=== PATIENT | male | born 1950 | race Caucasian/White ===

== ENCOUNTER 2019-10-21 01:21 | Emergency (ER) | payer MEDICARE, SELFPAY ==
--- NOTE | ~2019-10-21 | XR_ITS ---
EXAMINATION: XR chest 2V DATE: 10/21/2019 01:50 INDICATION: Heart palpitations. TECHNIQUE: Frontal and lateral views of the chest were obtained. COMPARISON: Chest 2 views 04/09/2015, CT abdomen 12/03/2018 FINDINGS: There is mild atelectasis in the lower lung zones. There are peripheral airspace opacities in left mid and lower lung zones. Calcified left lung nodules and calcified left hilar lymph nodes ar e consistent with old granulomatous disease. No pleural effusion or pneumothorax. The heart size is n ormal. There are 2 chronic compression fractures in thoracic spine. IMPRESSION: 1. Peripheral airspace opacities in left mid and lower lung zones, which may be pneumonia, atelectasi s, or prominent extrapleural fat. 2. Mild atelectasis in the lower lung zones. Reviewed, dictated and finalized at location A. IMPRESSION: 1. Peripheral airspace opacities in left mid and lower lung zones, which may be pneumonia, atelectasis, or prominent extrapleural fat. 2. Mild atelectasis in the lower lung zones.
[2019-10-21 01:25] VITALS: BP 154/100; PULSE 98; RESP 18; TEMP 36.2; O2SAT 97
--- NOTE | 2019-10-21 01:29 | ECG_ITS ---
Measurements Intervals [place] Rate: 96 P: 47 MD: 233 QRS: -23 QRSD: 98 T: 67 QT: 345 QTc: 437 Interpretive Statements SINUS RHYTHM WITH FIRST DEGREE AV BLOCK INCOMPLETE RIGHT BUNDLE BRANCH BLOCK LEFT VENTRICULAR HYPERTROPHY AND ST-T CHANGE BASELINE ARTIFACT- II, III, AVF ABNORMAL ECG Electronically Signed On 10-21-2019 7:04:04 CDT by Ishmael Weeks D.O.
--- NOTE | 2019-10-21 01:30 | PC.NURSE ---
Patient reports taking two 324 ASA at 1999.
--- NOTE | 2019-10-21 01:38 | ED.ARRPALP ---
HPI - Arrhythmia/Palpitations General Chief Complaint: Arrhythmia/Palpitations Stated Complaint: HEART RACING Time Seen by Provider: 10/21/19 01:37 Source: patient Mode of arrival: ambulatory Limitations: no limitations History of Present Illness HPI narrative: Patient is a 69-year-old male who presents to the emergency department with complaint of heart racing. Patient states he was laying in bed trying to go to sleep when he noticed his heart beating very fast. Patient states it was beating approximately 140 beats a minute. Patient sat up and drank a glass of water, but did not have any improvement in symptoms. Patient states he feels better at this time. He denies any history of cardiac problems or heart arrhythmias. Patient denies having had any chest pain or shortness of breath. He denies any recent illness symptoms and states he is otherwise been doing well. MD complaint: heart racing Duration: now resolved Context: occurred during rest Associated symptoms: denies other symptoms Treatments prior to arrival: other (Took 2 full-strength aspirin prior to arrival) Related Data Home Medications Medication Instructions Recorded Confirmed aspirin 81 mg tablet,delayed 81 mg PO DAILY 05/13/19 release calcium carbonate-vitamin D3 600 tablet PO 05/13/19 mg(1,500 mg)-400 unit chewable tablet simvastatin 20 mg tablet 20 mg PO DAILY 05/13/19 Allergies Allergy/AdvReac Type Severity Reaction Status Date / Time No Known Allergies Allergy Unknown Verified 06/23/19 13:53 Review of Systems Review of Systems: All systems reviewed & are unremarkable except as noted in HPI and below Cardiovascular: Cardiovascular: Denies chest pain and Reports rapid heart rate Respiratory: Respiratory: Denies cough and Denies dyspnea PMFSH Past Medical History Medical History (Updated 10/21/19 @ 03:23 by Moriah Mccormack MD) Abdominal aortic aneurysm (AAA) without rupture Chronic midline low back pain with bilateral sciatica Hx of colonic polyps Mixed hyperlipidemia Vitamin D deficiency Surgical History Surgical History (Updated 10/21/19 @ 01:53 by Moriah Mccormack MD) History of colonoscopy With polypectomy Family History Family History (Updated 11/07/18 @ 16:00 by DOCTOR UNKNOWN) Mother Carcinoma of colon Family history of malignant neoplasm of ovary Father Family history of Alzheimer's disease Family history of congestive heart failure Cerebrovascular accident Other Family history of malignant neoplasm Hypertension Social History Social History Smoking packs per day: 2 Smoking cigarettes per day: 40.0 Years smoked: 32 Smoking pack-years: 64.00 Smoking status: Former smoker Tobacco type: cigarettes Second hand tobacco smoke exposure: No Smoking end date: 06/26/98 Alcohol intake: current Drinks per week: 3 Substance use: never Substance use type: does not use Gender identity (if verbalized by the patient): Male Exam Const: General: cooperative, no acute distress and alert Nutritional Appearance: obese Orientation/consciousness: patient oriented x3 Limitations: no limitations Resp: Effort & Inspection: normal respiratory effort Auscultation: clear to auscultation bilaterally Cardio: Rate: regular rate Rhythm: regular rhythm GI: GI Palp: Yes Soft to palpation and No Tenderness to palpation present (GI) Auscultation: normal bowel sounds Skin: General skin exam: normal color Neuro: General: patient oriented x3 Cognition (Neuro): normal cognition Speech: normal speech Extrem: General: normal to inspection, full ROM and no clubbing, cyanosis or edema Psych: Mental Status: mental status grossly normal Affect: normal affect Attitude: cooperative Course Course Emergency Course: Patient in normal sinus rhythm on classroom monitor throughout his ED visit. No evidence of arrhythmi
[2019-10-21 01:39] LABS: Basophils Absolute Auto 0.1 K/mm3 (0.0-0.1); Basophils Percent Auto 0.7 % (0.2-1.2); Eosinophils Absolute Auto 0.2 K/mm3 (0-0.3); Hematocrit 42.9 % (42.0-52.0); Hemoglobin 14.8 g/dL (14.0-18.0); Immature Granulocyte Absolute 0.03 K/mm3 (0.00-0.031); Immature Granulocyte Percent A 0.4 % (0-0.5); Lymphocytes Absolute Auto 3.31 K/mm3 (0.9-3.2); Lymphocytes Percent Auto 47.1 % (18.3-44.2); Mean Corpuscular HGB Conc 34.5 g/dl (32-36); Mean Corpuscular Hemoglobin 32.2 pg (26-34); Mean Corpuscular Volume 93.5 fl (80-100); Mean Platelet Volume 8.9 fl (7.4-10.4); Monocytes Percent Auto 14.1 % (2.6-8.5); Neutrophils Absolute Auto 2.4 K/mm3 (1.3-6.7); Neutrophils Percent Auto 34.7 % (45.5-73.1); Platelet Count Result 191 k/mm3 (150-375); Red Blood Count 4.59 M/mm3 (4.6-6.20); Red Cell Distribution Width 12.6 % (11.5-14.5)
[2019-10-21 01:47] LABS: INR 0.9; Prothrombin Time 12.3 Seconds (11.1-14.7)
[2019-10-21 01:48] LABS: Blood Urea Nitrogen 21 mg/dL (9-20); Calcium 9.4 mg/dL (8.4-10.2); Carbon Dioxide 27 mmol/L (22-30); Chloride 106 mmol/L (98-107); Estimated CRCL calculation 57 ml/min; Estimated Glomerular Filt Rate 50; Glucose 130 mg/dL (75-110); Partial Thromboplastin Time 25.6 SECONDS (22.3-36.8); Potassium 4.3 mmol/L (3.4-5.0); Sodium 139 mmol/L (137-145)
[2019-10-21 02:00] LABS: Troponin I < 0.012 ng/mL (0.000-0.034)
[2019-10-21 02:20] LABS: Magnesium 2.1 mg/dL (1.6-2.3)
[2019-10-21 03:33] VITALS: BP 127/76; PULSE 77; RESP 15; O2SAT 98
== END 2019-10-21 03:33 | disposition home or self-care (01) ==
PROVIDERS: Emergency Provider Emergency Medicine; PCP Family Medicine
DX: R00.2 Palpitations (principal); Z86.010 Personal history of colon polyps; E78.2 Mixed hyperlipidemia; E55.9 Vitamin D deficiency, unspecified; Z87.891 Personal history of nicotine dependence; I45.10 Unspecified right bundle-branch block; I44.0 Atrioventricular block, first degree; R94.31 Abnormal electrocardiogram [ECG] [EKG]
CPT/HCPCS: 36415; 71046; 80048; 83735; 84443; 84484; 85025; 85610; 85730; 93005; 99284

== ENCOUNTER 2019-10-24 05:50 | Observation (INO) | payer MEDICARE, SELFPAY ==
[2019-10-24] VITALS (8 sets, daily range): BP systolic 127–190; BP diastolic 71–100; PULSE 57–143; RESP 14–28; TEMP 36.6–36.7; O2SAT 97–100; BMI 37.0
--- NOTE | 2019-10-24 | ECHO_ITS ---
Patient Info Name: Brendan Allred Age: 69 years : 1950 Gender: Male Ht: 69 in Wt: 251 lbs BSA: 2.40 m2 HR: 60 bpm BP: 142 / 85 mmHg Heart Rhythm: Sinus Rhythm Technical Quality: Good Exam Date: 10/24/2019 11:30 AM [facility]am [facility] Pul[facility] Exam Room: [place] [address] Patient Status: Outpatient Admit Date: 10/24/2019 Staff Ordering Physician: Kenny Henson DO Electrical Machinist: Josi Long RDCS Attending Provider: Shantell Rogel MD Referring Physician: Natividad FORREST; Exam Type: CA echo doppler color flow Study Info Indications - hx/o AAA NEW ONSET AFLUTTER EVAL LV FXN Complete two-dimensional, color flow and Doppler transthoracic echocardiogram is performed. Summary 1. Left ventricular chamber dimension is normal. 2. Left ventricular systolic function is normal, estimated at 55-60%. 3. There is mildly increased left ventricular wall thickness. 4. Left ventricular septal wall motion is normal. 5. The left ventricular diastolic function is grade I diastolic dysfunction. 6. Right ventricular chamber dimension is mildly enlarged. 7. There is mild aortic valve sclerosis. 8. There is mild to moderate aortic valve regurgitation. 9. There is mild mitral valve regurgitation. 10. The mitral valve has thickened leaflets. 11. There is mild tricuspid valve regurgitation. 12. There is mild pulmonic regurgitation. 13. The abdominal aorta size is dilated. Left Ventricle Left ventricular chamber dimension is normal. Left ventricular systolic function is normal, estimated at 55-60%. There is mildly increased left ventricular wall thickness. Left ventricular septal wall motion is normal. The left ventricular diastolic function is grade I diastolic dysfunction. Right Ventricle Right ventricular chamber dimension is mildly enlarged. Right ventricular systolic function is normal. Left Atria Left atrial chamber dimension is mildly enlarged. Right Atria Right atrial chamber dimension is mildly enlarged. Atrial Septum Intact interatrial septum visualized by color flow imaging. Aortic Valve The aortic valve is trileaflet. There is mild aortic valve sclerosis. There is no aortic valve stenosis. There is mild to moderate aortic valve regurgitation. Pulmonic Valve The pulmonic valve is normal. There is no pulmonic valve stenosis. There is mild pulmonic regurgitation. Mitral Valve The mitral valve has thickened leaflets. There is no mitral valve stenosis. There is mild mitral valve regurgitation. Tricuspid Valve The tricuspid valve leaflets are normal. There is no significant tricuspid valve stenosis. There is mild tricuspid valve regurgitation. No pulmonary hypertension, estimated pulmonary arterial systolic pressure is 25 mmHg. Pericardium/Pleural The pericardium appears normal. There is no pericardial effusion. Inferior Vena Cava Normal inferior vena cava with >50% collapse upon inspiration consistent with normal right atrial pressure, 10 mmHg. Aorta The aortic root size at the sinus of Valsalva is mildly dilated. The abdominal aorta size is dilated. Left Ventricular Outflow Tract Name Value Normal LVOT 2D LVOT Diameter 2.3 cm
--- NOTE | ~2019-10-24 | XR_ITS ---
EXAMINATION: XR chest 1V portable DATE: 10/24/2019 06:10 INDICATION: Chest pain. TECHNIQUE: A single frontal view of the chest was obtained. COMPARISON: Chest 2 views 10/21/2019, CT abdomen 12/03/2018 FINDINGS: The chest demonstrates clear lungs without pneumonia, pleural effusion, or pneumothorax. Th e heart size is normal. IMPRESSION: 1. No acute cardiopulmonary disease. Reviewed, dictated and finalized at location A.
--- NOTE | ~2019-10-24 | CT_ITS ---
EXAMINATION: CTA chest PE protocol DATE: 10/24/2019 07:00 INDICATION: Chest pain. TECHNIQUE: Computed tomography angiography (CTA) of the chest was performed with 100 mL Omnipaque-350 intravenous contrast timed to evaluate the pulmonary arteries. Coronal maximum intensity projection 3D-reconstructions were created by the technologist. Automated exposure control and iterative reconst ruction technique were employed. The dose-length product was 956.48 mGy-cm. COMPARISON: CT abdomen 12/03/2018 FINDINGS: There are peripheral reticular opacities and mild peripheral groundglass opacities in the u pper lobes and lower lobes. Calcified bilateral lung nodules and calcified left hilar lymph nodes are consistent with old granulomatous disease. No pleural effusion. The heart size is normal. There are coronary artery calcifications. No pericardial effusion. There is no pulmonary embolus. There are cys ts in the liver measuring up to 4.0 cm. There is chronic height loss of multiple thoracic vertebral b odies. IMPRESSION: 1. No pulmonary embolus. 2. Peripheral reticular and mild groundglass opacities in the upper lobes and lower lobes, consistent with mild atelectasis and/or mild chronic interstitial lung disease. Reviewed, dictated and finalized at location A. IMPRESSION: 1. No pulmonary embolus. 2. Peripheral reticular and mild groundglass opacities in the upper lobes and l ower lobes, consistent with mild atelectasis and/or mild chronic interstitial l jonathon disease.
--- NOTE | 2019-10-24 05:59 | ECG_ITS ---
Measurements Intervals [place] Rate: 143 P: FL: 0 QRS: -27 QRSD: 110 T: 75 QT: 243 QTc: 375 Interpretive Statements ATRIAL FLUTTER/TACHYCARDIA WITH RAPID VENTRICULAR RESPONSE INCOMPLETE RIGHT BUNDLE BRANCH BLOCK NONSPECIFIC ST & T-WAVE ABNORMALITY- LATERAL LEADS ABNORMAL ECG Electronically Signed On 10-24-2019 7:30:30 CDT by Ishmael Weeks D.O.
[2019-10-24] MEDS: ASPIRIN 81 MG CHEWABLE TABLET 324 MG PO (06:03)
--- NOTE | 2019-10-24 06:14 | ED.ARRPALP ---
HPI - Arrhythmia/Palpitations General Chief Complaint: Arrhythmia/Palpitations Stated Complaint: Heart racing Time Seen by Provider: 10/24/19 06:07 Source: RN notes reviewed History of Present Illness HPI narrative: Patient presents to emergency department from home for palpitations. Patient states 30 minutes prior to arrival he started feeling like his heart was racing. Patient states he has no associated symptoms denies any fevers or chills chest pain shortness of breath abdominal pain. He states that he had similar symptoms on Monday and came to the emergency department but symptoms had resolved by the time he had arrived and had normal work-up at that time. He denies any previous history of cardiac arrhythmia denies any previous cardiac history Related Data Home Medications Medication Instructions Recorded Confirmed aspirin 81 mg tablet,delayed 81 mg PO DAILY 05/13/19 release calcium carbonate-vitamin D3 600 tablet PO 05/13/19 mg(1,500 mg)-400 unit chewable tablet simvastatin 20 mg tablet 20 mg PO DAILY 05/13/19 Allergies Allergy/AdvReac Type Severity Reaction Status Date / Time No Known Allergies Allergy Unknown Verified 10/22/19 13:02 Review of Systems Review of Systems: Narrative: Gen.: Denies fevers or chills Eyes: Denies eye pain or visual change ENT: Denies congestion Respiratory: Denies shortness of breath or cough CV: See HPI GI: Denies abdominal pain nausea, emesis or diarrhea Musculoskeletal: Denies back pain or muscle pain Neuro: Denies numbness, tingling, weakness or focal weakness Skin: Denies rash Except as documented, all other systems reviewed and negative [facility] Past Medical History Medical History Abdominal aortic aneurysm (AAA) without rupture Chronic midline low back pain with bilateral sciatica Hx of colonic polyps Mixed hyperlipidemia Vitamin D deficiency Social History Social History Smoking packs per day: 2 Smoking cigarettes per day: 40.0 Years smoked: 32 Smoking pack-years: 64.00 Smoking status: Former smoker Tobacco type: cigarettes Second hand tobacco smoke exposure: No Smoking end date: 06/26/98 Alcohol intake: current Drinks per week: 3 Substance use: never Substance use type: does not use Gender identity (if verbalized by the patient): Male Exam Narrative: Exam Narrative: APPEARANCE: No acute distress, nontoxic, resting in bed EYES: EOMI HEENT: Normocephalic, atraumatic, OMM RESPIRATORY: No respiratory distress Clear to auscultation bilaterally with no rhonchi wheezing or rales. CARDIOVASCULAR: Tachycardic and regular without murmurs rubs or gallops. ABDOMINAL: Soft, nontender, nondistended, no rebound or guarding MUSCULOSKELETAl: Moves all extremities. No clubbing, cyanosis or edema. NEURO: Awake and alert. Following commands, speech normal, no focal deficits SKIN:: Warm, dry. No rashes lesions or abrasions PSYCHIATRIC: Normal affect/mood, Course Course Emergency Course: Patient given Cardizem in the ED with conversion to sinus rhythm Called discussed Dr. Rogel presentation work-up. This time she recommends admission of the chest pain center. Recommends cardiac echo be obtained. Request patient be started on Cardizem CD 180 mg at this time Discussed with patient and family results of workup and diagnosis. Discussed need for admission. Patient and family understand and agree to current treatment plan Vital Signs Vital signs: Vital Signs Temperature 97.9 F 10/24/19 05:55 Pulse Rate 143 H 10/24/19 05:55 Respiratory Rate 28 H 10/24/19 05:55 Blood Pressure 190/100 H 10/24/19 05:55 Pulse Oximetry 98 10/24/19 05:55 Temperature 97.9 F 10/24/19 05:55 Pulse Rate 72 10/24/19 06:56 Respiratory Rate 22 H 10/24/19 06:56 Blood Pressure 127/78 10/24/19 06:56 Pulse Oximetry 97 10/24/19 06:56
[2019-10-24 06:19] LABS: Basophils Percent Auto 0.5 % (0.2-1.2); Eosinophils Absolute Auto 0.2 K/mm3 (0-0.3); Eosinophils Percent Auto 2.8 % (0-4.4); Hematocrit 46.2 % (42.0-52.0); Hemoglobin 15.5 g/dL (14.0-18.0); Immature Granulocyte Absolute 0.03 K/mm3 (0.00-0.031); Immature Granulocyte Percent A 0.4 % (0-0.5); Lymphocytes Absolute Auto 3.69 K/mm3 (0.9-3.2); Lymphocytes Percent Auto 46.6 % (18.3-44.2); Mean Corpuscular HGB Conc 33.5 g/dl (32-36); Mean Corpuscular Hemoglobin 31.4 pg (26-34); Mean Corpuscular Volume 93.7 fl (80-100); Mean Platelet Volume 9.1 fl (7.4-10.4); Monocytes Absolute Auto 0.9 K/mm3 (0.1-0.6); Monocytes Percent Auto 11.9 % (2.6-8.5); Neutrophils Percent Auto 37.8 % (45.5-73.1); Platelet Count Result 209 k/mm3 (150-375); Red Blood Count 4.93 M/mm3 (4.6-6.20); Red Cell Distribution Width 12.5 % (11.5-14.5); White Blood Count 7.9 K/mm3 (4.5-10.0)
--- NOTE | 2019-10-24 06:27 | ECG_ITS ---
Measurements Intervals [facility] Rate: 68 P: 51 WV: 235 QRS: -19 QRSD: 102 T: 63 QT: 371 QTc: 395 Interpretive Statements SINUS RHYTHM WITH SINUS ARRHYTHMIA WITH FIRST DEGREE AV BLOCK INCOMPLETE RIGHT BUNDLE BRANCH BLOCK VOLTAGE CRITERIA FOR LVH BASELINE ARTIFACT- I, II, III, AVL, AVF ABNORMAL ECG Electronically Signed On 10-24-2019 7:31:07 CDT by Ishmael Weeks D.O.
[2019-10-24 06:30] LABS: Alanine Aminotransferase 22 U/L (4-50); Albumin Level 4.7 g/dL (3.5-5.1); Alkaline Phosphatase 54 U/L (38-126); Aspartate Amino Transferase 27 U/L (17-59); Bilirubin,Total 0.3 mg/dL (0.2-1.3); Blood Urea Nitrogen 20 mg/dL (9-20); Calcium 9.5 mg/dL (8.4-10.2); Carbon Dioxide 24 mmol/L (22-30); Chloride 106 mmol/L (98-107); Estimated CRCL calculation 60 ml/min; Estimated Glomerular Filt Rate 55; Glucose 125 mg/dL (75-110); Potassium 4.4 mmol/L (3.4-5.0); Sodium 140 mmol/L (137-145)
[2019-10-24] MEDS: SODIUM CHLORIDE 0.9% IV 1,000 ML 999 ML IV CONT (06:36)
[2019-10-24 06:38] LABS: D Dimer 0.56 ug/mL (<0.48)
[2019-10-24 06:42] LABS: NT Pro B Type Natriuretic Pept 87 PG/ML (5-100); Troponin I < 0.012 ng/mL (0.000-0.034)
[2019-10-24 07:04] LABS: Thyroid Stimulating Hormone 0.948 uIU/mL (0.465-4.680)
--- NOTE | 2019-10-24 07:47 | PC.NURSE ---
CALLED LAB AND ADDED ON LIPID PANEL ORDER
[2019-10-24 08:03] LABS: Cholesterol 210 mg/dL (0-200); HDL Direct 40 mg/dL; Triglycerides 178 mg/dL (<150)
[2019-10-24 08:14] LABS: LDL Cholesterol Direct 137 mg/dL
[2019-10-24 09:49] LABS: Troponin I < 0.012 ng/mL (0.000-0.034)
--- NOTE | 2019-10-24 10:41 | ECG_ITS ---
Measurements Intervals [place] Rate: 54 P: 25 MN: 213 QRS: -16 QRSD: 106 T: 33 QT: 414 QTc: 394 Interpretive Statements SINUS BRADYCARDIA WITH FIRST DEGREE AV BLOCK INCOMPLETE RIGHT BUNDLE BRANCH BLOCK VOLTAGE CRITERIA FOR LVH BASELINE ARTIFACT- I, III, AVL ABNORMAL ECG Electronically Signed On 10-24-2019 9:43:01 CDT by Ishmael Weeks D.O.
--- NOTE | 2019-10-24 11:22 | PM.IMHP ---
H&P: HPI History of Present Illness Chief complaint: atrial flutter new onset Narrative: Chief complaint: Palpitations. 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 He follows up with Dr. Mcadams) who apparently presented to the emergency room on October 19 with palpitations and at that time was found to have a normal sinus rhythm a was discharged home. However he comes back last night again with palpitations and on arrival to the emergency room was found to have heart rate 140 beats per minute with EKG consistent with atrial flutter. It resolved with diltiazem IV push and then was placed on diltiazem 180 mg p.o. daily. Denies chest pain, shortness of breath, orthopnea, paroxysmal nocturnal dyspnea, dizziness, syncope. TSH was 1.6 Had no recurrence of atrial flutter overnight. Echocardiogram is being done Drinks 1 beer every night and may be 1 wine. Review of Systems Review of Systems: All systems reviewed & are unremarkable except as noted in HPI and below Constitutional: Constitutional: Denies chills, Denies fatigue, Denies fever(s), Denies headache(s) and Denies snoring Eyes: Eyes: Denies eye discharge and Denies loss of vision ENT: Denies dizziness, Denies headache(s), Denies nasal discharge and Denies sore throat Cardiovascular: Cardiovascular: Reports as per HPI, Denies chest pain, Denies syncope, Denies rapid heart rate, Denies leg edema, Denies dyspnea, Denies dyspnea on exertion, Denies orthopnea and Denies paroxysmal nocturnal dyspnea Respiratory: Respiratory: Denies chest congestion, Denies cough, Denies dyspnea, Denies dyspnea on exertion, Denies snoring and Denies wheezing Gastrointestinal: Gastrointestinal: Denies abdominal pain, Denies diarrhea, Denies nausea and Denies vomiting Genitourinary: Genitourinary: Denies hematuria, Denies dysuria, Denies flank pain and Denies urinary frequency Musculoskeletal: Musculoskeletal: Denies myalgias, Denies arthralgias and Denies joint swelling Neurologic: Denies Abnormal speech present, Denies dizziness, Denies syncope, Denies headache(s), Denies focal weakness and Denies loss of vision Psychiatric: Psychiatric: Denies anxiety and Denies depression Endocrine: Endocrine: Denies cold intolerance, Denies fatigue and Denies heat intolerance Hematologic/Lymphatic: Hematologic/Lymphatic: Denies easy bleeding and Denies easy bruising Allergic/Immunologic: Allergic/Immunologic: Denies urticaria and Denies wheezing PMFSH Past Medical History Medical History Abdominal aortic aneurysm (AAA) without rupture Chronic midline low back pain with bilateral sciatica Hx of colonic polyps Mixed hyperlipidemia Vitamin D deficiency Surgical History Surgical History History of colonoscopy With polypectomy History of sinus surgery Family History Family History Mother Carcinoma of colon Family history of malignant neoplasm of ovary Father Family history of Alzheimer's disease Family history of congestive heart failure Cerebrovascular accident Other Family history of malignant neoplasm Hypertension Social History Social History Smoking packs per day: 2 Smoking cigarettes per day: 40.0 Years smoked: 32 Smoking pack-years: 64.00 Smoking status: Never smoker Tobacco type: cigarettes Second hand tobacco smoke exposure: Yes Smoking end date: 06/26/98 Alcohol intake: current Drinks per week: 3 Substance use: never Substance use type: does not use Gender identity (if verbalized by the patient): Male Meds Home Medications and Allergies Ho
--- NOTE | 2019-10-24 13:40 | ECG_ITS ---
Measurements Intervals [place] Rate: 64 P: 37 GA: 227 QRS: -23 QRSD: 104 T: 83 QT: 325 QTc: 338 Interpretive Statements SINUS RHYTHM WITH FIRST DEGREE AV BLOCK ATRIAL PREMATURE COMPLEX INCOMPLETE RIGHT BUNDLE BRANCH BLOCK VOLTAGE CRITERIA FOR LVH BORDERLINE T WAVE ABNORMALITY- LATERAL LEADS BASELINE ARTIFACT- I, II, AVR ABNORMAL ECG Electronically Signed On 10-28-2019 7:51:33 CDT by Ishmael Weeks D.O.
--- NOTE | 2019-10-24 13:41 | ECG_ITS ---
Measurements Intervals [place] Rate: 66 P: 23 [place]: 219 QRS: -24 QRSD: 104 T: 91 QT: 328 QTc: 346 Interpretive Statements SINUS RHYTHM WITH SINUS ARRHYTHMIA WITH FIRST DEGREE AV BLOCK INCOMPLETE RIGHT BUNDLE BRANCH BLOCK VOLTAGE CRITERIA FOR LVH NONSPECIFIC ST & T-WAVE ABNORMALITY- LATERAL LEADS BASELINE ARTIFACT- I, II, III, AVR, AVL, AVF ABNORMAL ECG Electronically Signed On 10-24-2019 14:18:40 CDT by Ishmael Weeks D.O.
== END 2019-10-24 14:47 | disposition home or self-care (01) ==
LOC: ANHED 07:44 → ANHCPC 10:26
PROVIDERS: Admitting Provider Internal Medicine Cardiovascular Disease; Emergency Provider Emergency Medicine; PCP Family Medicine; Visit Provider Internal Medicine Cardiovascular Disease
DX: I48.92 Unspecified atrial flutter (principal); E78.2 Mixed hyperlipidemia; N18.3 Chronic kidney disease, stage 3 (moderate); I71.4 Abdominal aortic aneurysm, without rupture; E55.9 Vitamin D deficiency, unspecified; M54.42 Lumbago with sciatica, left side; M54.41 Lumbago with sciatica, right side; Z79.82 Long term (current) use of aspirin; Z79.899 Other long term (current) drug therapy; Z86.010 Personal history of colon polyps; Z87.891 Personal history of nicotine dependence
CPT/HCPCS: 36415; 71045; 71275; 80053; 80061; 83735; 83880; 84443; 84484; 85025; 85380; 93005; 93306; 96365; 99285; A9270; G0378; J7030; Q9967

== ENCOUNTER 2021-10-20 02:36 | Emergency (ER) | payer MEDICARE, SELFPAY ==
--- NOTE | ~2021-10-20 | XR_ITS ---
EXAMINATION: XR chest 1V portable DATE: 10/20/2021 03:18 INDICATION: Dyspnea. TECHNIQUE: A single frontal view of the chest was obtained. COMPARISON: Chest single view 10/24/2019, chest CT 10/24/2019 FINDINGS: Calcified left lung nodule and calcified left hilar lymph nodes are consistent with old gra nulomatous disease. There are interstitial opacities in the mid and lower lung zones. No pleural effu ezio or pneumothorax. The heart size is normal. IMPRESSION: 1. Interstitial opacities in the mid and lower lung zones, consistent with mild atelectasis versus mi ld pulmonary edema. Reviewed, dictated and finalized at location A. IMPRESSION: 1. Interstitial opacities in the mid and lower lung zones, consistent with mild atelectasis versus mild pulmonary edema.
--- NOTE | 2021-10-20 02:44 | ECG_ITS ---
Measurements Intervals [facility] Rate: 141 P: [place]: 0 QRS: -30 QRSD: 107 T: 63 QT: 274 QTc: 421 Interpretive Statements SUPRAVENTRICULAR TACHYCARDIA BORDERLINE LEFT AXIS DEVIATION [QRS AXIS < -20] S1-S2-S3 PATTERN, CONSISTENT WITH PULMONARY DISEASE, RVH, OR NORMAL VARIANT INCOMPLETE RIGHT BUNDLE BRANCH BLOCK [90+ ms QRS DURATION, TERMINAL R IN V1/V2, 40+ ms S IN I/aVL/V4/V5/V6] NONSPECIFIC ST CHANGES COMPARED TO ECG 10/24/2019 14:17:38 SUPRAVENTRICULAR TACHYCARDIA NOW PRESENT ST (T WAVE) DEVIATION NOW PRESENT Electronically Signed On 10-20-2021 13:44:42 CDT by Shantell Rogel M.D.
[2021-10-20 02:49] VITALS: BP 122/85; PULSE 148; RESP 18; TEMP 37.6; O2SAT 98
--- NOTE | 2021-10-20 02:55 | ED.ARRPALP ---
HPI - Arrhythmia/Palpitations General Chief Complaint: Arrhythmia/Palpitations Stated Complaint: palpitations/ SOB Time Seen by Provider: 10/20/21 02:47 Source: patient Mode of arrival: ambulatory Limitations: no limitations History of Present Illness HPI narrative: Pt sasy he developed palpitations an d elvated HR at 0100 tonight. Pt denies CP. Pt had a little SOB when he walked in to the ER from the parking lot. Pt has a history of a flutter and this feels the same. MD complaint: rapid heart beat, heart racing and palpitations Onset (ago): hour(s) (2) Duration: constant Severity: mild Context: occurred during rest Arrhythmia history: other (a flutter) Associated symptoms: shortness of breath Related Data Home Medications Medication Instructions Recorded Confirmed aspirin 81 mg tablet,delayed 81 mg PO DAILY 05/13/19 08/23/21 release calcium carbonate 600 mg-vitamin 500 tablet PO DAILY 05/13/19 08/23/21 D3 10 mcg (400 unit) chewable tablet apixaban 5 mg tablet 5 mg PO BID 11/13/19 08/23/21 ascorbic acid (vitamin C) 1,000 mg 1 g PO DAILY 08/23/21 08/23/21 tablet losartan 25 mg tablet 25 mg PO BID tablet 08/23/21 08/23/21 zinc 50 mg tablet 50 mg PO DAILY 08/23/21 08/23/21 Allergies Allergy/AdvReac Type Severity Reaction Status Date / Time No Known Allergies Allergy Unknown Verified 08/23/21 09:23 Review of Systems Review of Systems: All systems reviewed & are unremarkable except as noted in HPI and below PMFSH Past Medical History Medical History Abdominal aortic aneurysm (AAA) without rupture Atrial flutter Chronic midline low back pain with bilateral sciatica Hx of colonic polyps Mixed hyperlipidemia Vitamin D deficiency Surgical History Surgical History History of colonoscopy With polypectomy History of sinus surgery Family History Family History Mother Carcinoma of colon Family history of malignant neoplasm of ovary Father Family history of Alzheimer's disease Family history of congestive heart failure Cerebrovascular accident Other Family history of malignant neoplasm Hypertension Social History Social History Smoking packs per day: 2 Smoking cigarettes per day: 40.0 Years smoked: 32 Smoking pack-years: 64.00 Smoking status: Former smoker Tobacco type: cigarettes Second hand tobacco smoke exposure: Yes Smoking end date: 06/26/98 Alcohol intake: current Drinks per week: 3 Alcohol use details: beers Substance use: never Substance use type: does not use Gender identity (if verbalized by the patient): Male Sexual Orientation (if Verbalized by the Patient): Straight or Heterosexual Exam Const: General: no acute distress Orientation/consciousness: patient oriented x3 Resp: Effort & Inspection: normal respiratory effort Auscultation: clear to auscultation bilaterally Cardio: Rate: regular rate and tachycardic GI: GI Palp: Yes Soft to palpation Auscultation: normal bowel sounds Skin: General skin exam: normal color Neuro: General: patient oriented x3 and moves all extremities Extrem: General: normal to inspection and no clubbing, cyanosis or edema Psych: Appearance: grossly normal Mental Status: mental status grossly normal Thought content: Yes Normal thought content present Course Course Emergency Course: EKG #2 sinus arrythmia with 1st degree AV block no st or t wave changes. Pt feels fine. Wants to go home Vital Signs Vital signs: Vital Signs Temperature 99.7 F H 10/20/21 02:49 Pulse Rate 148 H 10/20/21 02:49 Respiratory Rate 18 10/20/21 02:49 Blood Pressure 122/85 10/20/21 02:49 Pulse Oximetry 98 10/20/21 02:49 Temperature 99.7 F H 10/20/21 02:49 Pulse Rate 71 09/25
[2021-10-20 03:00] VITALS: BP 125/87; PULSE 147; RESP 24; O2SAT 96
[2021-10-20 03:06] LABS: Basophils Percent Auto 0.4 % (0.2-1.2); Eosinophils Absolute Auto 0.2 K/mm3 (0-0.3); Eosinophils Percent Auto 1.8 % (0-4.4); Hematocrit 44.5 % (42.0-52.0); Hemoglobin 14.6 g/dL (14.0-18.0); Immature Granulocyte Absolute 0.03 K/mm3 (0.00-0.031); Immature Granulocyte Percent A 0.3 % (0-0.5); Lymphocytes Absolute Auto 2.28 K/mm3 (0.9-3.2); Lymphocytes Percent Auto 20.4 % (18.3-44.2); Mean Corpuscular HGB Conc 32.8 g/dl (32-36); Mean Corpuscular Hemoglobin 32.2 pg (26-34); Mean Platelet Volume 9.2 fl (7.4-10.4); Monocytes Absolute Auto 1.7 K/mm3 (0.1-0.6); Neutrophils Percent Auto 62.1 % (45.5-73.1); Platelet Count Result 180 k/mm3 (150-375); Red Blood Count 4.54 M/mm3 (4.6-6.20); Red Cell Distribution Width 12.5 % (11.5-14.5); White Blood Count 11.2 K/mm3 (4.5-10.0)
[2021-10-20] MEDS: dilTIAZem HCl INJ 25 MG/5 ML VIAL 20 MG IV PUSH (03:07)
[2021-10-20 03:17] LABS: Alanine Aminotransferase 21 U/L (4-50); Albumin Level 4.4 g/dL (3.5-5.1); Alkaline Phosphatase 75 U/L (38-126); Anion Gap 7 mmol/L (8-16); Aspartate Amino Transferase 30 U/L (17-59); Bilirubin,Total 0.3 mg/dL (0.2-1.3); Blood Urea Nitrogen 23 mg/dL (9-20); Calcium 9.2 mg/dL (8.4-10.2); Carbon Dioxide 28 mmol/L (22-30); Chloride 104 mmol/L (98-107); Estimated Glomerular Filt Rate 54; Glucose 133 mg/dL (65-110); Potassium 4.3 mmol/L (3.4-5.0); Sodium 139 mmol/L (137-145)
[2021-10-20 03:23] LABS: INR 1.1; Prothrombin Time 14.1 Seconds (11.1-14.7)
[2021-10-20 03:28] LABS: NT Pro B Type Natriuretic Pept 141 pg/mL (5-100); Troponin I < 0.012 ng/mL (0.000-0.034)
[2021-10-20 04:00] VITALS: BP 117/74; PULSE 72; RESP 14; O2SAT 97
[2021-10-20 04:45] VITALS: BP 120/72; PULSE 71; RESP 19; O2SAT 99
[2021-10-20 04:55] LABS: SARS-CoV-2 RNA PCR Negative
== END 2021-10-20 05:10 | disposition home or self-care (01) ==
PROVIDERS: Emergency Provider Emergency Medicine; PCP Family Medicine
DX: I48.92 Unspecified atrial flutter (principal); Z20.822 Contact with and (suspected) exposure to COVID-19; E78.2 Mixed hyperlipidemia; E55.9 Vitamin D deficiency, unspecified; Z86.010 Personal history of colon polyps; Z87.891 Personal history of nicotine dependence; R06.02 Shortness of breath
CPT/HCPCS: 36415; 71045; 80053; 83880; 84484; 85025; 85610; 85730; 93005; 96374; 99284; C9803; U0003; U0005

== ENCOUNTER 2022-08-09 17:35 | Emergency (ER) | payer MEDICARE, SELFPAY ==
[2022-08-09 17:49] VITALS: BP 142/70; PULSE 60; RESP 18; TEMP 36.1; O2SAT 97
[2022-08-09 18:13] LABS: Basophils Percent Auto 0.6 % (0.2-1.2); Eosinophils Absolute Auto 0.2 K/mm3 (0-0.3); Eosinophils Percent Auto 2.9 % (0-4.4); Hemoglobin 14.3 g/dL (14.0-18.0); Immature Granulocyte Absolute 0.02 K/mm3 (0.00-0.031); Immature Granulocyte Percent A 0.3 % (0-0.5); Lymphocytes Absolute Auto 2.48 K/mm3 (0.9-3.2); Lymphocytes Percent Auto 35.5 % (18.3-44.2); Mean Corpuscular Hemoglobin 31.9 pg (26-34); Mean Corpuscular Volume 93.8 fl (80-100); Monocytes Absolute Auto 0.8 K/mm3 (0.1-0.6); Monocytes Percent Auto 10.9 % (2.6-8.5); Neutrophils Absolute Auto 3.5 K/mm3 (1.3-6.7); Neutrophils Percent Auto 49.8 % (45.5-73.1); Platelet Count Result 214 k/mm3 (150-375); Red Blood Count 4.48 M/mm3 (4.6-6.20); Red Cell Distribution Width 12.5 % (11.5-14.5)
[2022-08-09 18:19] LABS: Alanine Aminotransferase 21 U/L (6-50); Albumin Level 4.7 g/dL (3.5-5.1); Alkaline Phosphatase 76 U/L (38-126); Anion Gap 6 mmol/L (8-16); Aspartate Amino Transferase 26 U/L (17-59); Bilirubin,Total 0.5 mg/dL (0.2-1.3); Blood Urea Nitrogen 23 mg/dL (9-20); Calcium 8.9 mg/dL (8.4-10.2); Carbon Dioxide 24 mmol/L (22-30); Chloride 104 mmol/L (98-107); Estimated CRCL calculation 59 ml/min; Estimated Glomerular Filt Rate 60; Glucose 95 mg/dL (65-110); Lipase 200 U/L (23-300); Potassium 4.1 mmol/L (3.4-5.0); Sodium 134 mmol/L (137-145)
[2022-08-09 18:29] LABS: Appearance Urine Clear (Clear); Bilirubin Urine Negative (Negative); Blood Urine Negative (Negative); Color Urine Yellow (Yellow); Glucose Urine UA Negative (Negative); Ketones Urine Negative (Negative); Leukocyte Esterase Ur Negative LEU/UL (Negative); Nitrate Urine Negative (Negative); Protein Urine Negative (Negative); Urobilinogen Urine 0.2 mg/dL (<2.0)
[2022-08-09 18:30] LABS: Mucus Urine Rare /lpf; RBC Urine 0-2 /hpf (0-2); WBC Urine 0-3 /hpf
[2022-08-09 18:32] LABS: Add Urine Microscopic? YES
--- NOTE | 2022-08-09 19:15 | PC.NURSE ---
patient states his pain is goon and he left from waiting room
== END 2022-08-09 20:29 | disposition left against medical advice (07) ==
PROVIDERS: Emergency Provider Emergency Medicine; PCP Family Medicine
DX: R10.31 Right lower quadrant pain (principal)
CPT/HCPCS: 36415; 80053; 81001; 83690; 85025; 99199

== ENCOUNTER 2023-01-26 09:41 | Outpatient (CLI) | payer MEDICARE, SELFPAY ==
--- NOTE | ~2023-01-26 | US_ITS ---
Ultrasound of the Abdominal Aorta INDICATION: Abdominal aortic aneurysm COMPARISON: 11/23/2018 TECHNIQUE: Grayscale, color Doppler, and pulsed Doppler images of the aorta and common iliac arteries were obtained. COMPARISON: None. FINDINGS: Maximum vascular dimensions are as follows: Proximal aorta: 2.1 cm Mid aorta: 1.0 cm Distal aorta: 4.6 cm Right common iliac artery: 1.1 cm Left common iliac artery: 1.0 cm Infrarenal abdominal aortic aneurysm measures 5.0 cm in maximum diameter. IMPRESSION: Infrarenal abdominal aortic aneurysm measures 5.0 cm in maximum diameter. By measurements, this is es sentially stable from prior exam. CT angiogram can be considered to better evaluate, as indicated. Reviewed, dictated and finalized at location . IMPRESSION: Infrarenal abdominal aortic aneurysm measures 5.0 cm in maximum diameter. By me asurements, this is essentially stable from prior exam. CT angiogram can be con sidered to better evaluate, as indicated.
--- NOTE | ~2023-01-26 | US_ITS ---
EXAMINATION: US soft tissue UE RT DATE: 01/26/2023 10:47 INDICATION: Localized swelling, mass and lump at the right upper limb TECHNIQUE: Multiple grayscale and Doppler ultrasound images of the region of concern at the right upp er arm were obtained. COMPARISON: None FINDINGS: 3.7 x 2.3 x 0.9 cm lobular mass at the region of concern which demonstrates identical echogenicity an d echotexture to the surrounding subcutaneous fat most consistent with a lipoma. No other abnormal ma sses or fluid collections identified. The visualized underlying musculature is unremarkable. IMPRESSION: 1. Nonspecific 3.7 x 2.3 x 0.9 cm subcutaneous mass at the right upper arm with appearance most consi stent with and statistically most likely to represent a lipoma. Reviewed, dictated and finalized at location A. IMPRESSION: 1. Nonspecific 3.7 x 2.3 x 0.9 cm subcutaneous mass at the right upper arm with appearance most consistent with and statistically most likely to represent a l ipoma.
== END 2023-01-26 09:42 | disposition home or self-care (01) ==
PROVIDERS: PCP Family Medicine; Visit Provider Family Medicine
DX: R22.31 Localized swelling, mass and lump, right upper limb (principal); I71.40 Abdominal aortic aneurysm, without rupture, unspecified
CPT/HCPCS: 76775; 76882

== ENCOUNTER 2023-04-15 12:23 | Emergency (ER) | payer MEDICARE, SELFPAY ==
[2023-04-15] VITALS (16 sets, daily range): BP systolic 121–141; BP diastolic 65–92; PULSE 61–90; RESP 15–22; TEMP 36.4; O2SAT 94–98
--- NOTE | ~2023-04-15 | XR_ITS ---
EXAMINATION: XR chest 2V 04/15/2023 12:52 INDICATION: Chest pain. Elevated heart rate. Atrial flutter. PROCEDURE: 2 view chest COMPARISON: Comparison to multiple prior studies sequentially, with oldest reviewed study dated 06/09/2015. FINDINGS: The lungs are clear. Cardiomegaly. There are no pleural effusions. There is no pneumothora x suspected. IMPRESSION: 1: NO ACUTE CARDIOPULMONARY DISEASE. Reviewed, dictated and finalized at location A.
--- NOTE | 2023-04-15 12:24 | ECG_ITS ---
Measurements Intervals [place] Rate: 97 P: 35 AK: 244 QRS: -35 QRSD: 102 T: 58 QT: 350 QTc: 445 Interpretive Statements SINUS RHYTHM WITH FIRST DEGREE AV BLOCK WITH OCCASIONAL VENTRICULAR PREMATURE COMPLEXES MARKED LEFT AXIS DEVIATION [QRS AXIS < -30] LOW QRS VOLTAGE IN PRECORDIAL LEADS [QRS DEFLECTION < 1.0 mV IN CHEST LEADS] INCOMPLETE RIGHT BUNDLE BRANCH BLOCK [90+ ms QRS DURATION, TERMINAL R IN V1/V2, 40+ ms S IN I/aVL/V4/V5/V6] ABNORMAL ECG COMPARED TO ECG 10/20/2021 02:47:08 SINUS RHYTHM NOW PRESENT Electronically Signed On 04-16-2023 8:17:58 CDT by Robert Rodriguez M.D.
--- NOTE | 2023-04-15 12:31 | ED.ARRPALP ---
HPI - Arrhythmia/Palpitations General Chief Complaint: Arrhythmia/Palpitations Stated Complaint: A-flutter Time Seen by Provider: 04/15/23 12:31 History of Present Illness HPI narrative: Patient is a 73 year old male with history of atrial flutter here with palpitations. Patient notes that this morning he was playing music around 10:30 AM when he began feeling palpitations. They were associated with dizziness and light headedness. He checked his HR and it was around 160. He has been advised by his host/hostess restaurant Dr. Murphy in the past to take an additional diltiazem dose if he feels that he gets into afib, which he took around 10:45 AM. His HR remained elevated. He then spoke with family and came into the ED. He currently feels much better with a normal HR. He has been compliant with his eliquis. He denies cough, congestion, fever, chills, any recent illness. No recent changes in medications. No recent travel, long car rides, recent surgeries. He has followed with Dr. Murphy for quite some time, ablation has been discussed in the past but deferred as this additional dose of Diltazem is usually successful at getting him back out of afib/flutter and episodes occur less than 2x per month. Of note, he has recently established with a new vascular surgeon out of [facility], had a follow up CTA of his AAA performed 2 days ago, is awaiting results. Notes it has been stable for quite some time. Related Data Home Medications Medication Instructions Recorded Confirmed aspirin 81 mg tablet,delayed 81 mg PO DAILY 05/13/19 03/01/23 release calcium carbonate 600 mg-vitamin 500 tablet PO DAILY 05/13/19 03/01/23 D3 10 mcg (400 unit) chewable tablet (Calcium 600 with Vitamin D3) apixaban 5 mg tablet (Eliquis) 5 mg PO BID 11/13/19 03/01/23 ascorbic acid (vitamin C) 1,000 mg 1 g PO DAILY 08/23/21 03/01/23 tablet zinc 50 mg tablet 50 mg PO DAILY 08/23/21 03/01/23 Allergies Allergy/AdvReac Type Severity Reaction Status Date / Time No Known Allergies Allergy Unknown Verified 03/01/23 08:57 Review of Systems Review of Systems: All systems reviewed & are unremarkable except as noted in HPI and below PMFSH Past Medical History Medical History Abdominal aortic aneurysm (AAA) without rupture Atrial flutter Chronic midline low back pain with bilateral sciatica CKD (chronic kidney disease), stage III History of squamous cell carcinoma Hx of colonic polyps Hypertension Mixed hyperlipidemia Vitamin D deficiency Surgical History Surgical History History of colonoscopy With polypectomy History of sinus surgery Family History Family History Mother Carcinoma of colon Family history of malignant neoplasm of ovary Father Family history of Alzheimer's disease Family history of congestive heart failure Cerebrovascular accident Other Family history of malignant neoplasm Hypertension Social History Social History Smoking packs per day: 2 Smoking cigarettes per day: 40.0 Years smoked: 32 Smoking pack-years: 64.00 Smoking status: Former smoker Tobacco type: cigarettes Second hand tobacco smoke exposure: Yes Smoking end date: 06/26/98 Alcohol intake: current Drinks per week: 3 Alcohol use details: beers Substance use: never Substance use type: does not use Living arrangements: alone Occupation/Education: retired Gender identity (if verbalized by the patient): Male Sexual Orientation (if Verbalized by the Patient): Straight or Heterosexual Exam Narrative: GENERAL: Well-appearing, well-nourished, and in no acute distress. HEAD: Normocephalic, atraumatic. EYES: PERRLA and EOMI. ENT: Nares clear. Mucous membranes moist. NECK: Supple. CHEST:
[2023-04-15 12:44] LABS: Basophils Percent Auto 0.6 % (0.2-1.2); Eosinophils Absolute Auto 0.1 K/mm3 (0-0.3); Eosinophils Percent Auto 1.1 % (0-4.4); Hematocrit 44.6 % (42.0-52.0); Hemoglobin 15.2 g/dL (14.0-18.0); Immature Granulocyte Absolute 0.01 K/mm3 (0.00-0.031); Immature Granulocyte Percent A 0.2 % (0-0.5); Lymphocytes Absolute Auto 1.87 K/mm3 (0.9-3.2); Lymphocytes Percent Auto 28.5 % (18.3-44.2); Mean Corpuscular HGB Conc 34.1 g/dl (32-36); Mean Corpuscular Hemoglobin 31.7 pg (26-34); Mean Corpuscular Volume 93.1 fl (80-100); Mean Platelet Volume 8.9 fl (7.4-10.4); Monocytes Absolute Auto 0.6 K/mm3 (0.1-0.6); Monocytes Percent Auto 9.7 % (2.6-8.5); Neutrophils Absolute Auto 3.9 K/mm3 (1.3-6.7); Neutrophils Percent Auto 59.9 % (45.5-73.1); Platelet Count Result 187 k/mm3 (150-375); Red Blood Count 4.79 M/mm3 (4.6-6.20); Red Cell Distribution Width 12.3 % (11.5-14.5); White Blood Count 6.6 K/mm3 (4.5-10.0)
[2023-04-15 12:55] LABS: Alanine Aminotransferase 22 U/L (6-50); Albumin Level 4.6 g/dL (3.5-5.1); Alkaline Phosphatase 67 U/L (38-126); Anion Gap 10 mmol/L (8-16); Aspartate Amino Transferase 26 U/L (17-59); Bilirubin,Total 0.6 mg/dL (0.2-1.3); Blood Urea Nitrogen 17 mg/dL (9-20); Calcium 9.5 mg/dL (8.4-10.2); Carbon Dioxide 23 mmol/L (22-30); Chloride 105 mmol/L (98-107); Estimated CRCL calculation 67 ml/min; Estimated Glomerular Filt Rate > 60; Glucose 121 mg/dL (65-110); Lipase 204 U/L (23-300); Potassium 4.3 mmol/L (3.4-5.0); Sodium 138 mmol/L (137-145)
[2023-04-15 12:59] LABS: Partial Thromboplastin Time 28.5 SECONDS (22.3-36.8); Prothrombin Time 14.2 Seconds (11.1-14.7)
[2023-04-15 13:07] LABS: Troponin I < 0.012 ng/mL (0.000-0.034)
[2023-04-15 13:14] LABS: Magnesium 1.9 mg/dL (1.6-2.3)
[2023-04-15 15:50] LABS: Troponin I < 0.012 ng/mL (0.000-0.034)
== END 2023-04-15 16:07 | disposition home or self-care (01) ==
PROVIDERS: Emergency Medicine; Emergency Provider Student in an Organized Health Care Education/Training Program; PCP Family Medicine
DX: I48.92 Unspecified atrial flutter (principal); I48.91 Unspecified atrial fibrillation; R07.89 Other chest pain; I12.9 Hypertensive chronic kidney disease with stage 1 through stage 4 chronic kidney disease, or unspecified chronic kidney disease; N18.30 Chronic kidney disease, stage 3 unspecified; E78.2 Mixed hyperlipidemia; E55.9 Vitamin D deficiency, unspecified; Z86.010 Personal history of colon polyps; Z85.828 Personal history of other malignant neoplasm of skin; Z87.891 Personal history of nicotine dependence; Z79.01 Long term (current) use of anticoagulants; Z79.82 Long term (current) use of aspirin
CPT/HCPCS: 36415; 71046; 80053; 83690; 83735; 84484; 85025; 85610; 85730; 93005; 99284

== ENCOUNTER 2023-06-18 23:33 | Emergency (ER) | payer MEDICARE, SELFPAY ==
[2023-06-18 23:40] VITALS: BP 130/89; PULSE 110; RESP 20; TEMP 36.4; O2SAT 97
--- NOTE | 2023-06-18 23:46 | PC.NURSE ---
2340 Patient getting triaged with VS being taken by this RN. Patient states my heart rate is going down now, I think I'm just going to leave, my medicine is working. This RN informed patient of risks of leaving before being seen by a provider. Patient a/ox4, denies pain, and verbalized understanding of risks of leaving before being seen by a provider. Patient states I will come back if I need to, but I am just going to go home. Patient ambulated out of the ED with a steady gait with belongings in hand. Patient left ED before ekg or labs were drawn.
== END 2023-06-18 23:45 | disposition left against medical advice (07) ==
LOC: ANHED 23:54
PROVIDERS: PCP Family Medicine
DX: Z53.21 Procedure and treatment not carried out due to patient leaving prior to being seen by health care provider (principal)
CPT/HCPCS: 99199

== ENCOUNTER 2023-11-07 00:43 | Day surgery (SDC) | payer MEDICARE, SELFPAY ==
[2023-10-27 13:42] VITALS: BMI 36.9
--- NOTE | 2023-10-27 14:06 | PC.NURSE ---
Spoke with HUMERA regarding medication ELIQUIS. Pt. verbalizes understanding that the last dose of ELIQUIS is to be taken on 11/04/2023 and the Endoscopist will instruct them when to restart after the procedure. He is instructed he does not need to stop ASPIRIN.
[2023-11-07 07:49] VITALS: BP 152/82; PULSE 64; RESP 18; TEMP 36.2; O2SAT 98
[2023-11-07] MEDS: LACTATED RINGERS 1,000 ML 150 ML IV CONT (08:00)
--- NOTE | 2023-11-07 08:41 | WPDANESEPPF ---
Anes - Initial Pre Proc Eval Procedure: Operation Date: 11/07/23 09:00 Proposed Procedures p Colonoscopy - Aquilino Mendez MD Date/Time: 11/07/23 08:41 Surgeon: Aquilino Mendez MD Pre Op Diagnosis: fam. hx. malignant neoplasm of digestive system Patient Data Age: 73 Gender: M Height: 1.75 m Weight: 117.5 kg Last Vital Signs Temp 97.2 F L 11/07/23 07:49 Pulse 64 11/07/23 07:49 Resp 18 11/07/23 07:49 BP 152/82 H 11/07/23 07:49 Pulse Ox 98 11/07/23 07:49 O2 Del Method Room Air 11/07/23 07:49 Allergies Allergy/AdvReac Type Severity Reaction Status Date / Time No Known Allergies Allergy Unknown Verified 11/07/23 07:45 Home Medications Medication Instructions Recorded Confirmed Type aspirin 81 mg tablet,delayed 81 mg PO DAILY 05/13/19 10/27/23 History release atorvastatin 20 mg tablet 20 mg PO HS #30 tabs 10/24/19 10/27/23 Rx apixaban 5 mg tablet (Eliquis) 5 mg PO BID 11/13/19 11/07/23 History ascorbic acid (vitamin C) 1,000 mg 1 g PO DAILY 08/23/21 10/27/23 History tablet sodium sul 1.479 gram-potas ch See Rx Instructions PO PER PKG DIR 09/08/23 10/27/23 Rx 0.188 gram-magnes sul 0.225 gram #24 tabs tablet (Sutab) calcium carbonate-vitamin D3 500 1 cap PO BID 10/27/23 10/27/23 History mg (1,250 mg)-50 unit capsule diltiazem HCl 120 mg capsule,24 120 mg PO BID 10/27/23 11/07/23 History hr,extended release (Tiadylt ER) losartan 50 mg tablet 50 mg PO DAILY 10/27/23 10/27/23 History omega 9-tyr-ujr-fish oil 1,200 mg 1 cap PO DAILY 10/27/23 10/27/23 History (144 mg-216 mg) capsule (Fish Oil) Patient hx anesthesia problems: none Family hx anesthesia problems: none Results Review: All pre-operative results and documents have been reviewed as part of the pre-operative evaluation. [facility] Past Medical History Medical History (Updated 08/30/23 @ 10:04 by Osei Hooper MD) Abdominal aortic aneurysm (AAA) without rupture s/p EVAR Atrial flutter Chronic midline low back pain with bilateral sciatica CKD (chronic kidney disease), stage III Family history of colon cancer History of squamous cell carcinoma Hx of colonic polyps Hypertension Mixed hyperlipidemia Vitamin D deficiency Surgical History Surgical History Femoral artery pseudo-aneurysm, left s/p repair History of colonoscopy With polypectomy History of sinus surgery Status post endovascular aneurysm repair (EVAR) Family History Family History Mother Carcinoma of colon Family history of malignant neoplasm of ovary Father Family history of Alzheimer's disease Family history of congestive heart failure Cerebrovascular accident Other Family history of malignant neoplasm Hypertension Social History Social History Smoking packs per day: 2 Smoking cigarettes per day: 40.0 Years smoked: 32 Smoking pack-years: 64.00 Smoking status: Former smoker Tobacco type: cigarettes Second hand tobacco smoke exposure: Yes Smoking end date: 06/26/98 Alcohol intake: current Drinks per week: 2 Alcohol use details: BEERS Substance use: never Substance use type: does not use Living arrangements: with family Occupation/Education: retired Gender identity (if verbalized by the patient): Male Sexual Orientation (if Verbalized by the Patient): Straight or Heterosexual Spiritual care concerns: No Anes - Eval Final PreProcedure Day of Procedure 11/07/23 08:41 Patient weight: obese Heart: regular rate and rhythm Lungs: clear to auscultation Airway: Mallampati scale class II Neurological: alert and oriented Last oral intake: >/= 8 hours ASA classification: III Emergent: no Anesthetic plan: proceed Anesthesia type and monitoring: general GIVS and standard mo
--- NOTE | 2023-11-07 08:44 | PM.HPGS ---
History of Present Illness History of Present Illness Consent: Risks, benefits, and alternatives have been discussed and questions answered. Patient agrees to proceed with procedure. Chief complaint: fam. hx. malignant neoplasm of digestive system Narrative: Brendan Allred is a 73 year old male with colon polyps in 2019 Review of Systems Review of Systems: All systems reviewed & are unremarkable except as noted in HPI and below PMFSH Past Medical History Medical History (Updated 08/30/23 @ 10:04 by Osei Hooper MD) Abdominal aortic aneurysm (AAA) without rupture s/p EVAR Atrial flutter Chronic midline low back pain with bilateral sciatica CKD (chronic kidney disease), stage III Family history of colon cancer History of squamous cell carcinoma Hx of colonic polyps Hypertension Mixed hyperlipidemia Vitamin D deficiency Surgical History Surgical History Femoral artery pseudo-aneurysm, left s/p repair History of colonoscopy With polypectomy History of sinus surgery Status post endovascular aneurysm repair (EVAR) Family History Family History Mother Carcinoma of colon Family history of malignant neoplasm of ovary Father Family history of Alzheimer's disease Family history of congestive heart failure Cerebrovascular accident Other Family history of malignant neoplasm Hypertension Social History Social History Smoking packs per day: 2 Smoking cigarettes per day: 40.0 Years smoked: 32 Smoking pack-years: 64.00 Smoking status: Former smoker Tobacco type: cigarettes Second hand tobacco smoke exposure: Yes Smoking end date: 06/26/98 Alcohol intake: current Drinks per week: 2 Alcohol use details: BEERS Substance use: never Substance use type: does not use Living arrangements: with family Occupation/Education: retired Gender identity (if verbalized by the patient): Male Sexual Orientation (if Verbalized by the Patient): Straight or Heterosexual Spiritual care concerns: No Meds Home Medications and Allergies Home Medications Medication Instructions Recorded Confirmed Type aspirin 81 mg tablet,delayed 81 mg PO DAILY 05/13/19 10/27/23 History release atorvastatin 20 mg tablet 20 mg PO HS #30 tabs 10/24/19 10/27/23 Rx apixaban 5 mg tablet (Eliquis) 5 mg PO BID 11/13/19 11/07/23 History ascorbic acid (vitamin C) 1,000 mg 1 g PO DAILY 08/23/21 10/27/23 History tablet sodium sul 1.479 gram-potas ch See Rx Instructions PO PER PKG DIR 09/08/23 10/27/23 Rx 0.188 gram-magnes sul 0.225 gram #24 tabs tablet (Sutab) calcium carbonate-vitamin D3 500 1 cap PO BID 10/27/23 10/27/23 History mg (1,250 mg)-50 unit capsule diltiazem HCl 120 mg capsule,24 120 mg PO BID 10/27/23 11/07/23 History hr,extended release (Tiadylt ER) losartan 50 mg tablet 50 mg PO DAILY 10/27/23 10/27/23 History omega 7-feu-fbx-fish oil 1,200 mg 1 cap PO DAILY 10/27/23 10/27/23 History (144 mg-216 mg) capsule (Fish Oil) Allergies Allergy/AdvReac Type Severity Reaction Status Date / Time No Known Allergies Allergy Unknown Verified 11/07/23 07:45 Vital Signs Vital Signs - 24 hr 11/07/23 07:49 Temperature 97.2 F L Pulse Rate 64 Respiratory Rate 18 Blood Pressure 152/82 H Pulse Oximetry 98 Oxygen Delivery Room Air Exam Const: General: comfortable and no acute distress HENMT: Face/Nose/Sinus: Normal nares present Eyes: General: appearance normal, both eyes and all related structures Neck: Neck: no JVD Resp: Auscultation: clear to auscultation bilaterally Cardio: Rate: regular rate Rhythm: regular rhythm GI: Inspection: non-distended GI Palp: Yes Soft to palpation Skin: General skin exam: normal color Neuro: General: gait normal Speech: normal speech
[2023-11-07 09:10] VITALS: BP 118/67; PULSE 71; RESP 24; O2SAT 95
[2023-11-07 09:20] VITALS: BP 122/64; PULSE 60; RESP 24; O2SAT 96
[2023-11-07 09:30] VITALS: BP 135/64; PULSE 63; RESP 17; O2SAT 98
== END 2023-11-07 09:40 | disposition home or self-care (01) ==
PROVIDERS: PCP Family Medicine; Visit Provider Internal Medicine Gastroenterology
PROC: 0DJD8ZZ Inspection of Lower Intestinal Tract, Via Natural or Artificial Opening Endoscopic (ICD-10-PCS; CPT 45378; principal; 2023-11-07 09:00)
DX: Z12.11 Encounter for screening for malignant neoplasm of colon (principal); D12.2 Benign neoplasm of ascending colon; K63.5 Polyp of colon; K64.8 Other hemorrhoids; I12.9 Hypertensive chronic kidney disease with stage 1 through stage 4 chronic kidney disease, or unspecified chronic kidney disease; N18.30 Chronic kidney disease, stage 3 unspecified; E78.2 Mixed hyperlipidemia; E55.9 Vitamin D deficiency, unspecified; I71.40 Abdominal aortic aneurysm, without rupture, unspecified; I48.92 Unspecified atrial flutter; G89.29 Other chronic pain; M54.42 Lumbago with sciatica, left side; M54.41 Lumbago with sciatica, right side; E66.9 Obesity, unspecified; Z68.38 Body mass index [BMI] 38.0-38.9, adult; Z79.82 Long term (current) use of aspirin; Z79.01 Long term (current) use of anticoagulants; Z98.890 Other specified postprocedural states; Z95.828 Presence of other vascular implants and grafts; Z87.891 Personal history of nicotine dependence; Z85.828 Personal history of other malignant neoplasm of skin; Z80.0 Family history of malignant neoplasm of digestive organs; Z80.41 Family history of malignant neoplasm of ovary; Z82.49 Family history of ischemic heart disease and other diseases of the circulatory system
CPT/HCPCS: 45385; 88305; J2704; J7120

== ENCOUNTER 2023-11-29 07:41 | Outpatient (CLI) | payer MEDICARE, SELFPAY ==
--- NOTE | ~2023-11-29 | CT_ITS ---
EXAMINATION: CTA chest DATE: 11/29/2023 08:26 CDT INDICATION: Infrarenal abdominal aortic aneurysm without rupture. TECHNIQUE: Computed tomographic angiography (CTA) of the chest was performed with 100 mL Omnipaque-35 0 intravenous contrast. The dose-length product was 984.51 mGy-cm. Maximum intensity projection 3D-re constructions of the aorta and other arteries were constructed by the technologist on a separate work station. COMPARISON: CTA chest dated 10/24/2019. FINDINGS: There is atherosclerosis of the aorta and coronary arteries without evidence for aneurysm o r dissection. Heart size normal. No significant pleural or pericardial effusion. There are liver cyst s. There are calcified granulomas of the spleen. There are calcified granulomas of the lungs. There a re peripheral interstitial changes with interlobular septal thickening and subpleural groundglass opa cification suggesting chronic interstitial lung disease. No focal airspace disease. No pneumothorax. No endobronchial lesions. There are chronic wedge compression fractures of T7 and T8. There is a new superior endplate compression fracture of T11 which is new compared with CT dated 10/24/2019, although likely chronic. Infrarenal abdominal aortic aneurysm is partially visualized on image 138. IMPRESSION: 1. No evidence for thoracic aortic aneurysm or dissection. 2: Mild chronic peripheral interstitial changes suspicious for chronic interstitial lung disease. Reviewed, dictated and finalized at location B. IMPRESSION: 1. No evidence for thoracic aortic aneurysm or dissection. 2: Mild chronic peripheral interstitial changes suspicious for chronic intersti tial lung disease.
[2023-11-29 08:03] LABS: Estimated Glomerular Filt Rate 59
== END 2023-11-29 07:42 | disposition home or self-care (01) ==
PROVIDERS: PCP Family Medicine; Visit Provider Internal Medicine Cardiovascular Disease
DX: I71.43 Infrarenal abdominal aortic aneurysm, without rupture (principal)
CPT/HCPCS: 71275; Q9967

== ENCOUNTER 2024-04-16 10:05 | Outpatient (CLI) | payer MEDICARE, SELFPAY ==
--- NOTE | 2024-04-16 12:26 | WPDSIXMINUTE ---
Six Minute Walk Procedure Procedure Performed Pulmonary Stress Test (6 min walk) Six Minute Walk Six Minute Walk: This is a 6 minute walk test. The test was performed and interpreted in accordance with the 2014 ERS/ATS task force guidelines. Findings: The patient's resting room air oxygen saturation measured by pulse oximetry was 96%, the heart rate was 74 bpm, and the modified Feliz dyspnea score was 0. Patient ambulated for 336 meters and oxygen saturation remained 92 to 94%. At the end of the study the heart rate was 111 bpm and the modified Feliz dyspnea score was 0.5. The patient did not qualify for supplemental oxygen at rest or with ambulation. There are no prior studies for comparison.
--- NOTE | 2024-04-16 12:28 | WPDPFTINT ---
PFT Procedure Performed PFT Procedure Performed Spirometry with Pre/Post Bronchodilator Plethysmography (Lung Vol) Diffusing Cap (DLCO) Flow Vol Loop PFT Interpretation This is a pulmonary function test with pre and post-bronchodilator spirometry, plethysmography and diffusing capacity. The test was performed and results interpreted in accordance with the 2019 and 2005 ATS/ERS Task Force guidelines respectively using the Global Lung Function Initiative-2012 reference equations. Patient demonstrated good effort and cooperation. Reproducibility criteria were met. The quality of the pre bronchodilator spirometry maneuver was Grade A and post bronchodilator spirometry maneuver was Grade A. Findings: Spirometry: The contour the inspiratory and expiratory flow tracing is normal. The pre bronchodilator FVC is 3.30 L, 84% predicted. The pre bronchodilator FEV1 was 2.58 L, 87% predicted. The pre bronchodilator FEV1: FVC ratio 78%. The post bronchodilator FVC is 3.43 L, representing a 4% increase. The post bronchodilator FEV1 is 2.67 L, representing a 4% increase. The post bronchodilator FEV1: FVC ratio 78%. Plethysmography: The total lung capacity is 5.47 L, 80% predicted. The functional residual capacity is 2.42 L, 67% predicted. The residual volume is 2.09 L, 84% predicted. Diffusing capacity: The diffusing capacity unadjusted for hemoglobin and carboxyhemoglobin is 17.6, 71% predicted. The diffusing capacity adjusted for alveolar volume is 3.52, 91% predicted. Impression: The spirometry is normal without evidence of an obstructive abnormality. There is no significant improvement after inhaling a single dose of albuterol. The lung volumes are normal. The diffusing capacity is normal. There are no prior studies for comparison
== END 2024-04-16 10:06 | disposition home or self-care (01) ==
LOC: ANHPFT 10:09
PROVIDERS: PCP Family Medicine; Visit Provider Internal Medicine Critical Care Medicine
DX: J84.9 Interstitial pulmonary disease, unspecified (principal)
CPT/HCPCS: 94060; 94618; 94726; 94729

== ENCOUNTER 2025-05-06 09:13 | Outpatient (CLI) | payer MEDICARE, SELFPAY ==
--- NOTE | ~2025-05-06 | CT_ITS ---
EXAMINATION:CT chest high resolution wo co DATE: 05/06/2025 09:36 INDICATION: Interstitial lung disease TECHNIQUE: Computed tomography (CT) of the chest was performed without intravenous contrast. The dose-length product (DLP) was 690.26 mGy-cm. COMPARISON: November 29, 2023 FINDINGS: Mild bibasilar peripheral and subpleural reticulation noted with minimal proximal Lucho formation. On some images such as images 68 through 63 of series 4, suggestion of subpleural sparing noted. No gross architectural distortion, bronchiectasis or air cyst formation. No gross acute intrathoracic process. Heart and great vessels appear stable and normal in size. Extensive coronary artery calcification and/or stenting. Numerous cysts in the visualized portions of the liver not clearly changed. Nodular thickening in the adrenal glands, left greater than right also not significantly changed. The aorta normal in size. No significant pericardial effusion or bulky lymphadenopathy. Central and large airways are patent. IMPRESSION: 1. Stable appearance of mild bilateral fibrosing changes consistent with mild interstitial lung disease. Subpleural sparing can be seen with nonspecific interstitial pneumonia or NSIP, often related to inflammatory processes such as connective tissue disorders. 2. Other chronic findings as above. Reviewed, dictated and finalized at location A. TEACHER IMPRESSION: 1. Stable appearance of mild bilateral fibrosing changes consistent with mild i nterstitial lung disease. Subpleural sparing can be seen with nonspecific inter stitial pneumonia or NSIP, often related to inflammatory processes such as conn ective tissue disorders. 2. Other chronic findings as above.
--- OUTSIDE RECORDS SUMMARY | 2025-05-06 09:30 | XMS_ITS | Clinical Summary ---
Author Organization [facility] Address [address] [place] [address] Care Team Providers Care Demolition Worker Name Role Phone Flako Rivera MD Primary Care Provider [phone] Social History Tobacco Use Types Packs/Day Years Used Date Smoking Tobacco: Never Assessed Sex and Gender Information Value Date Recorded Sex Assigned at Not on file Legal Sex Male 5:22 PM CDT Gender Identity Not on file Sexual Orientation Not on file Last Filed Vital Signs Vital Sign Reading Time Taken Comments Blood Pressure 124/72 03/24/2014 7:48 AM CDT Pulse 72 03/24/2014 7:48 AM CDT Temperature - - Respiratory Rate - - Oxygen Saturation - - Inhaled Oxygen Concentration - - Weight 108.9 kg (240 lb) 03/24/2014 7:48 AM CDT Height 175.3 cm (5' 9) 03/24/2014 7:48 AM CDT Body Mass Index 35.44 03/24/2014 7:48 AM CDT Plan of Treatment Health Maintenance Due Date Last Done Comments Colorectal Cancer Screening Colonoscopy (10 Years) 1950 Hepatitis C 01/07/1968 DTaP, Tdap and Td Vaccines ( 1 - Tdap) 1969 Pneumococcal Vaccine: 50+ Ye ars (1 of 1 - PCV) 01/07/2000 Zoster Vaccines (1 of 2) 01/07/2000 RSV Immunization or 60+ Years (1 - 1-dose 75+ series) 2025 COVID-19 Vaccine ( - 2024-2 6 season) 2025 Influenza Adult (#1) 2025 Hepatitis A Vaccines Aged Out No long er eligible based on patient's age to complete this topic Meningococcal B Vaccine Aged Out No l onger eligible based on patient's age to complete this topic Meningococcal Vaccine Aged Out No zain maggie eligible based on patient's age to complete this topic RSV Immunizations Under 20 Months Aged Out No longer eligible based on patient's age to complete this topic Care Teams Demolition Worker Relationship Specialty Start Date End Date Flako Rivera MD PCP - General 08/14/14
--- OUTSIDE RECORDS SUMMARY | 2025-05-06 09:30 | XMS_ITS | Encounter Summary ---
Author Organization [facility] Address [address] [place] [address] Care Team Providers Care Senior Fire Protection Engineer Name Role Phone Osei Hooper MD Primary Care Provider [phone] Encounter Details Date Type Department Care Team (Late st Contact Info) Description 04/03/2019 Lab Requisition [facility] [address] [place] [address] Figueroa Loomis [place] [address] Social History Tobacco Use Types Packs/Day Years Used Date Smoking Tobacco: Never Assessed Sex and Gender Information Value Date Recorded Sex Assigned at Not on file 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 Gender Identity Not on file Sexual Orientation Not on file documented as of this encounter Plan of Treatment Not on file documented as of this encounter Procedures Procedure Name Priority Date/Time Associated Diagnosis Comments DERMATOPATHOLOGY Routine 04/02/2019 12:0 0 AM CDT documented in this encounter Results * DERMATOPATHOLOGY (04/02/2019 12:00 AM CDT) Case Report Dermatopathology Report Case: [id number] Authorizing Provider: Figueroa Loomis MD Collected: 04/02/2019 12:00 AM Ordering Location: [facility] Received: 04/03/2019 10:53 AM Pathologist: Cally Pace MD Specimens: A) - Skin, left side nose B) - Skin, left inner upper thigh 9 4:28 PM CDT DERMATOPATHOLOGY LABORATORY Final Diagnosis Specimen A. SKIN, left side nose: SEBACEOUS HYPERPLASIA (L73.8) Specimen B. SKIN, left inner upper thigh: ACROCHORDON (SOFT FIBROMA, SKIN TAG) (L91.8) 4:28 PM CDT DERMATOPATHOLOGY LABORATORY at 1628 CDT Clinical History A: R/O BCC, bishop hyperplasia. B: R/O tag like nevus, etc. 4:28 PM CDT DERMATOPATHOLOGY LABORATORY Gross Description Specimen A: Received is one formalin filled container labeled with the patient's name and designated left side nose. The specimen consists of a shave biopsy measuring [id number]. Jar 0. Specimen B: Received is one formalin filled container labeled with the patient's name and designated left inner upper thigh. The specimen consists of a scissor biopsy measuring 1c8q2dy, bisected. Jar 0. 4:28 PM CDT DERMATOPATHOLOGY LABORATORY Microscopic Description Specimen A. SKIN, left side nose: There are prominent sebaceous gland lobules surrounding a dilated hair follicle. Specimen B. SKIN, left inner upper thigh: There is a gently folded epidermis surrounding a connective tissue core in which fat and collagen are intermingled. 4:28 PM CDT DERMATOPATHOLOGY LABORATORY Disclaimer An external and internal positive and negative controls are appropriate for the histochemical, immunohistochemical and immunofluorescence stain(s) in this case (if any), except where stated explicitly. The performance characteristics of the stain(s) cited in this report were developed and its performance characteristic determined by the Dermatopathology Laboratory at [facility], directed by Dr. Che Pace. These tests need not be, and therefore are not, approved by the [place] Food and Drug Administration. The tests are used for clinical purposes. Billing Codes Specimen Charges Stain Charges 45535 15777 1 1 4:28 PM CDT DERMATOPATHOLOGY LABORATORY Embedded Images 4:28 PM CDT DERMATOPATHOLOGY LABORATORY Pathology/Cytology TISSUE SPECIMEN FROM SKIN / Unknown 04/02/2019 04/03/2019 10:53 AM CDT Miscellaneous samples (specimen) TISSUE SPECIMEN FROM SKIN / Unknown 04/02/2019 04/03/2019 10:53 AM CDT us Figueroa Loomis MD LAB - PATHOLOGY/CYTOLOGY ORD ERABLES Final Result DERMATOPATHOLOGY LABORATORY [facility] - Department of Dermatology [address] [place] [address], [facility] [phone] documented in this encounter Visit Diagnoses Not on filedocumented in this encounter Care Teams Senior Fire Protection Engineer Relationship Specialty Start Date End Date Osei Hooper MD [address] [place] [address] PCP - General 10/15/18 documented as of this encounter
--- OUTSIDE RECORDS SUMMARY | 2025-05-06 09:30 | XMS_ITS | Clinical Summary ---
Author Organization [facility] Address [address] [place] [address] Care Team Providers Care Produce Associate Name Role Phone Osei Hooper MD Primary Care Provider [phone] Source Comments [facility],non-owned Affiliates and Associated Physician Practices is amultiple site organization consisting of ambulatory clinics and hospital sitesin [place], [place], [place] and [place]. This disclosure is being madepursuant to the Care Everywhere program and may not contain all information available regarding this patient. Last updated 18.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 Gender Identity Not on file Sexual Orientation Not on file Plan of Treatment Health Maintenance Due Date Last Done Comments COLOGUARD (AGES 45-75) - COL ON CA SCREENING 1950 COLON MONITORING 1950 COLONOSCOPY - COLON CA SCREENING 1950 CT COLONOGRAPHY - COLON CA SCREENING 1950 Colorectal Cancer Screening 1950 FIT - COLON CA SCREENING 1950 FLEX SIG - COLON CA SCREENING 1950 LIPID TESTING 1950 HEPATITIS C SCREENING 01/02/1968 DTAP/TDAP/TD VACCINES (1 - Tdap) 1969 PNEUMOCOCCAL VACCINE 50+ (1 of 1 - PCV) 01/07/2000 ZOSTER VACCINE (1 of 2) 01/07/2000 DEPRESSION SCREENING 06/26/2024 MEDICARE AWV CALENDAR YEAR 2024 Respiratory Syncytial Virus (RSV) Vaccine Pt: or over 60 yrs (1 - 1-dose 75+ series) 2025 COVID-19 VACCINE (2023-2 5 season) 2025 INFLUENZA VACCINE (#1) 2025 HEPATITIS B VACCINE Aged Out No longe r eligible based on patient's age to complete this topic HIB VACCINE Aged Out No longer eligi ble based on patient's age to complete this topic HPV VACCINE Aged Out No longer eligi ble based on patient's age to complete this topic MENINGOCOCCAL (Group B) VACC INE SHARED DECISION-MAKING Aged Out No longer eligibl e based on patient's age to complete this topic MENINGOCOCCAL GROUPS A/C/Y/W VACCINE Aged Out No longer eligible b ased on patient's age to complete this topic Insurance * Guarantor: BRENDAN ALLRED Account Type Relation to Patient Date of Phone Billing Address Personal/Family [address] [place] [address] [employer] MED[employer]ARE ADV SELF PAY NO INSURANCE Member Subscriber Plan / Payer (Ef fective for All Dates) Name:Brendan Allred Member ID:Not on file Relation to Subscriber:Not on file Name:BRENDAN ALLRED Subscriber ID:Not on file Address: [address] [place] [id number] Payer ID:Not on file Group ID:Not on file Type:Self Pay Address: [place], [place] * Guarantor: BRENDAN ALLRED Account Type Relation to Patient Date of Phone Billing Address Personal/Family [address] [place] [address] [employer] MED[employer]ARE ADV SELF PAY NO INSURANCE Member Subscriber Plan / Payer (Ef fective for All Dates) Name:Brendan Allred O Member ID:Not on file Relation to Subscriber:Not on file Name:BRENDAN ALLRED Subscriber ID:Not on file Address: [address] [place] [address] Payer ID:Not on file Group ID:Not on file Type:Self Pay Address: [place], [place] * Guarantor: BRENDAN ALLRED Account Type Relation to Patient Date of Phone Billing Address Personal/Family [address] [place] [address] [employer] MED[employer]ARE ADV SELF PAY NO INSURANCE Member Subscriber Plan / Payer (Ef fective for All Dates) Name:Brendan Allred O Member ID:Not on file Relation to Subscriber:Not on file Name:BRENDAN ALLRED Subscriber ID:Not on file Address: [address] [place] [phone] Payer ID:Not on file Group ID:Not on file Type:Self Pay Address: [place], [place] Care Teams Produce Associate Relationship Specialty Start Date End Date Osei Hooper MD [address] [place] [address] PCP - General 10/15/18
--- OUTSIDE RECORDS SUMMARY | 2025-05-06 09:30 | XMS_ITS | Clinical Summary ---
Author Organization [facility] [address] Address [address] [place] [address] Care Team Providers Care Front Office Secretary Name Role Phone Osei Hooper MD Primary Care Provider Nick Murphy MD Unavailable [phone] Allergies No known active allergies Medications aspirin 81 mg enteric coated tablet Take 1 tablet (81 mg total) by mouth nightly Active calcium carbonate-vitam in D3 (CALTRATE 600 + D) 1500 mg (600 mg elemental) -400 units per tablet Take 1 tablet by mouth 2 (two) times a day Active ascorbic acid (VITAMIN C) 100 mg tablet Take 1 tablet (100 mg total) by mouth daily Active losartan (COZAAR) 50 mg tabletIndicatio ns:hypertension Take 1 tablet (50 mg total) by mouth daily Active diltiazem (Tiadylt ER) 120 mg 24 hr capsule TAKE 1 CAPSULE BY MOUTH TWICE A DAY 180 capsule 2 07/31/2024 Active apixaban (Eliquis) 5 mg tablet Take 1 tablet (5 mg total) by mouth 2 (two) times a day 180 tablet 08/12/2024 Active vit D3-vit D-xveubupxi-nqu s [id number] eqtp-uca-df-mg tablet Take by mouth Active metoprolol tartrate (LOPRESSOR) 25 mg immediate release tablet Take 1 tablet (25 mg total) by mouth 2 (two) times a day 60 tablet 11 12/19/2024 Active atorvastatin (LIPITOR) 20 mg tablet 03/13/2025 Active Active Problems Problem Noted Date Diagnosed Date Palpitations 12/02/2024 Severe obesity 12/02/2024 Pseudoaneurysm following procedure 06/09/2023 Morbid (severe) obesity due to excess calories 1 07/22/2022 AAA (abdominal aortic aneurysm) without rupture 05/16/2023 Assessment & Plan (11/14/2024 1:09 PM CDT): Patent endograft with type 2 endoleak without sac expansion. Overall doing well, still has some numbness to the inner thigh from his open pseudoaneurysms repair. Continue ongoing surveillance Assessment & Plan (11/09/2023 7:09 AM CDT): Patent endograft with evidence of type 2 endoleak likely from lumbars or SHELTON. We will need continued ongoing surveillance with repeat CT abdomen pelvis in 6 months. Assessment & Plan (06/08/2023 12:45 PM TIMBER SURVEYOR): Status post EVAR. Discussed the need for lifelong surveillance. Left common femoral artery pseudoaneurysms based on his duplex, difficult to evaluate the neck of the pseudoaneurysms to see if this could be injected. CTA abdomen pelvis ordered for further evaluation, I discussed given the size of the pseudoaneurysms this would need intervention either thrombin injection versus surgical repair. Mixed hyperlipidemia 04/20/2023 Assessment & Plan (11/14/2024 1:09 PM CDT): Stable Crestor Assessment & Plan (04/20/2023 1:36 PM CDT): Stable continue Lipitor 20 mg. TORRES (dyspnea on exertion) 03/09/2020 Atrial flutter 12/09/2019 Assessment & Plan (04/20/2023 1:36 PM CDT): Stable hold Eliquis 48 hours prior to surgery. Assessment & Plan (03/30/2023 8:45 AM CDT): Impression: Patient has a history of atrial flutter currently on Eliquis. Currently controlled Plan: Continue Eliquis BMI 36.0-36.9,adult 12/09/2019 Essential hypertension 12/09/2019 Assessment & Plan (11/14/2024 1:09 PM CDT): Stable losartan Assessment & Plan (11/09/2023 7:09 AM CDT): Stable continue losartan 50 mg. Resolved Problems Problem Noted Date Diagnosed Date Resolved Date Pseudoaneurysm 06/27/2023 06/03/2024 Assessment & Plan (11/09/2023 7:09 AM CDT): Still having some swelling in the left lower extremity and some numbness to the inner thigh, discussed this could be nerve irritation from the pseudoaneurysms and its repair, recommend continuing surveillance as well as p.r.n. compression therapy to the left lower extremity for swelling Assessment & Plan (08/04/2023 1:16 PM TIMBER SURVEYOR): Doing well after undergoing open pseudoaneurysms repair, does have some left lower extremity edema. I have written a prescription for compression stockings. We will plan for repeat evaluation at his scheduled appointment with his CT abdomen pelvis to evaluate his endograft. Abdominal aortic aneurysm (A AA) without rupture 12/09/2019 06/03/2024 Assessment & Plan (04/20/2023 1:36 PM CDT): 5 cm AAA, rapid growth of over a cm in 1 year. Risks benefits alternatives to endovascular abdominal aortic aneurysms repaired discussed, risks including bleeding, infection, perforation, contrast induced nephropathy, dissection, thrombosis, distal embolization, mesenteric ischemia, renal failure, ischemia to the pelvis or bilateral lower extremities, DE, stroke, and . He wished to proceed. Assessment & Plan (03/30/2023 8:48 AM CDT): Impression: Patient was being followed by a vascular surgeon at an outside facility for an infrarenal abdominal aortic aneurysms. Patient was last seen last December and reported a 3.9 cm aneurysm seen on duplex. His vascular surgeon is no longer in practice. Most recent abdominal duplex performed on 01/26/2023 at an outside facility revealed a 5.0 cm infrarenal abdominal aortic aneurysms. Patient remains asymptomatic. Plan: Continue ongoing risk factor modifications. -patient to follow-up in 2 weeks for re-evaluation with CTA of abdomen and pelvis Encounters Date Type Department Care Team Description 03/31/2025 1:00 PM CDT Office Visit [facility] [address] [place] [address] Nick Murphy MD Mixed hyperlipidemia (Primary Dx); Essential hypertension; Atrial flutter, unspecified type (HCC); Infrarenal abdominal aortic aneurysm (AAA) without rupture from Last 3 Months Surgical History Surgery Date Site/Laterality Comments COLONOSCOPY SINUS SURGERY 06/26/2017 - 06/25/2018 CYST REMOVAL Right WRIST YEARS AGO ESOPHAGOGASTRODUODENOSCOPY ABDOMINAL AORTIC ANEURYSM REPAIR 05/16/2023 ENDO AAA PSEUDOANEURYSM REPAIR Left Injected in agricultural labor camp manager x 2 05/2023. Unsuccessful. PSEUDOANEURYSM REPAIR 06/27/2023 Left left common pseudoaneursym repair Medical History Medical History Date Comments Atrial flutter (HCC) see notes c onverted with iv diltiazem. sees Dr Murphy Chronic kidney disease stage III Hypertension Abdominal aortic aneurysm (AAA) s/p Repair 05/16/23 HLD (hyperlipidemia) TORRES (dyspnea on exertion) Obesity Allergic rhinitis Pseudoaneurysm 05/2023 Left Groin Anticoagulated Eliquis Family History Medical History Relation Name Comments Alzheimer's disease Father Flako Allred Cancer Mother Heather Allred Relation Name Status Comments Father Flako Allred Mother Heather Allred Social History Tobacco Use Types Packs/Day Years Used Date Smoking Tobacco: Former Cigarettes 2 32 1 968 - 2000 Passive Smoke Exposure: Past Smokeless Tobacco: Never Tobacco Cessation:Counseling Given: Not Answered Alcohol Use Standard Drinks/Week Comments Yes 14 (1 standard drink = 0.6 oz pu re alcohol) [facility] Utilities Answer Date Recorded In the past 12 months has e [employer], gas, oil, or water [employer] threatened to shut off services in your home? Patient unable to answer 06/28/2023 Social Connection and Isolation Panel Answer Date Recorded In a typical week, how many times do you talk on the phone with family, friends, or neighbors? Patient unable to answer 06/28/2023 How often do you get togethe r with friends or relatives? Patient unable to answer 06/28/2023 How often do you attend chur ch or gnosticism services? Patient unable to answer 06/28/2023 Do you belong to any clubs o r organizations such as latter-day groups, unions, fraternal or athletic groups, or school groups? Patient unable to answer 06/28/2023 How often do you attend meet ings of the clubs or organizations you belong to? Patient unable to answer 06/28/2023 Are you , , di vorced, , never , or living with a partner? Patient unable to answer 06/28/2023 AUDIT-C Answer Date Recorded Q1: How often do you have a drink containing alc ohol? 2-4 times a month 06/27/2023 Q2: How many drinks containi ng alcohol do you have on a typical day when you are drinking? 1 or 2 06/27/2023 Q3: How often do you have si x or more drinks on one occasion? Never 06/27/2023 Overall Financial Resource Strain (CARDIA) Answe r Date Recorded How hard is it for you to pa y for the very basics like food, housing, medical care, and heating? Patient unable to answer 06/28/2023 Hunger Vital Sign Answer Date Recorded Within the past 12 months, y ou worried that your food would run out before you got the money to buy more. Patient unable to answer 06/28/2023 Within the past 12 months, t he food you bought just didn't last and you didn't have money to get more. Patient unable to answer 06/28/2023 PRAPARE - Transportation Answer Date Re corded In the past 12 months, has l ack of transportation kept you from medical appointments or from getting medications? Patient unable to answer 06/28/2023 In the past 12 months, has l ack of transportation kept you from meetings, work, or from getting things needed for daily living? Patient unable to answer 06/28/2023 Housing Stability Vital Sign Answer Carlo e Recorded In the last 12 months, was t here a time when you were not able to pay the mortgage or rent on time? Patient unable to answer 06/28/2023 In the last 12 months, how m any places have you lived? 1 06/28/2023 In the last 12 months, was t here a time when you did not have a steady place to sleep or slept in a penitentiary (including now)? Patient unable to answer 06/28/2023 Personal Safety Answer Date Recorded Have you ever been in or are you currently in a harmful physical or emotional relationship or is someone making you feel afraid or unsafe? Denies 06/27/2023 Sex and Gender Information Value Date Recorded Sex Assigned at Not on file Legal Sex Male 9:12 PM TIMBER SURVEYOR Gender Identity Male 09/03/2020 9:08 AM TIMBER SURVEYOR Sexual Orientation Straight 09/03/2020 9: 08 AM TIMBER SURVEYOR Last Filed Vital Signs Vital Sign Reading Time Taken Comments Blood Pressure 112/68 03/31/2025 1:08 PM CDT Pulse 77 03/31/2025 1:08 PM CDT Temperature 37.2 C (99 F) 06/28/2023 11:17 AM TIMBER SURVEYOR Respiratory Rate 18 12/02/2024 8:32 AM CDT Oxygen Saturation 97% 03/31/2025 1:08 PM CDT Inhaled Oxygen Concentration - - Weight 117.1 kg (258 lb 1.6 oz) 03/31/2025 1:08 PM CDT Height 175.3 cm (5' 9) 03/31/2025 1:08 PM CDT Body Mass Index 38.11 03/31/2025 1:08 PM CDT Plan of Treatment Health Maintenance Due Date Last Done Comments Colon Cancer Screening-Colonoscopy 1950 Depression Screening 1950 Hepatitis C Screening 1950 Hepatitis B Screening 01/07/1968 Pneumococcal vaccine 65+ (1 of 1 - PCV) 01/07/2000 Zoster Vaccine (1 of 2) 01/07/2000 Well Visit 65+ 2015 Fall Risk Assessment 06/28/2024 06/28/2023, 05/06/20 22 Influenza Vaccine (#1) 2025 DTaP/Tdap/Td Vaccine (2 - Td or Tdap) 06/23/2029 06/23/2019 Abdominal Aortic Aneurysm (A AA) Screen Completed 03/31/2025, 12/02/2024, 11/12/2024, Additional history exists Medical Devices Implanted Type Area Irrigation Technician Device Identifier Shelf Expiration Date Model / Serial / Lot [employer] Device Clsr Perclose Prostyle Sut-Mediatd Closure-Repair Sys 68972-99 - [id number] Implanted:Qty: 1 on 05/16/2023 by Rambo Harding MD at [facility] Right: Femoral [employer] 12/23/2024 [id number] / / [id number] [employer] Device Clsr Perclose Prostyle Sut-Mediatd Closure-Repair Sys 96206-95 - [id number] Implanted:Qty: 1 on 05/16/2023 by Rambo Harding MD at [facility] Right: Femoral [employer] 12/23/2024 [id number] / / [id number] [employer] Device Clsr Perclose Prostyle Sut-Mediatd Closure-Repair Sys 98138-90 - [id number] Implanted:Qty: 1 on 05/16/2023 by Thomas Harding MD at [facility] Left: Femoral [employer] 12/23/2024 [id number] / / [id number] [employer] Device Clsr Perclose Prostyle Sut-Mediatd Closure-Repair Sys 25572-06 - [id number] Implanted:Qty: 1 on 05/16/2023 by Thomas Harding MD at [facility] Left: Femoral [employer] 12/23/2024 [id number] / / [id number] [employer] Excluder 14.5mm 32mm 14cm 6.5cm Conformable Active Control Trunk [id number] - [id number] - [id number] Implanted:Qty: 1 on 05/16/2023 by Rambo Harding MD at [facility] N/A: Aorta [employer] [id number] 01/23/2026 [id number] / [id number] / [employer] Bonnie Excluder 14.5mm 12cm Contralateral Leg Graft Endovascular [id number] - [id number] - [id number] Implanted:Qty: 1 on 05/16/2023 by Rambo Harding MD at [facility] Left: Common Iliac Artery [employer] [id number] 11/07/2025 [id number] / [id number] / [employer] Bonnie Excluder 14.5mm 10cm Contralateral Leg Graft Endovascular [id number] - [id number] - [id number] Implanted:Qty: 1 on 05/16/2023 by Rambo Harding MD at [facility] Right: Common Iliac Artery [employer] [id number] 10/22/2025 [id number] / [id number] / Procedures Procedure Name Priority Date/Time Associated Diagnosis Comments POCT LIPID PANEL Routine 03/31/2025 1:50 PM CDT Mixed hyperlipidemia CTA ABDOMEN PELVIS W WO CONTRAST Schedule Routine, Read Routine (OP Routine) 11/05/2024 1:24 PM CDT Infrarenal abdominal aortic aneurysm (AAA) without rupture from Last 3 Months or Most Recently Relevant to Health Maintenance Results * (ABNORMAL) POCT lipid panel (03/31/2025 1:50 PM CDT) Cholesterol, POC 182 <200 MG/DL Comment:GLU = 156 HDL, POC 37(A) >=40 mg/dL Triglycerides, POC 315(A) <=149 mg/dL LDL Cholesterol POC 82 <=129 mg/dL Chol/HDL Ratio, POC 2.2 NONE Non-HDL Cholesterol, POC 145 NONE mg/dL Cholesterol Total, POC 182 30 - 199 mg/dL Capillary blood 03/31/2025 1 :50 PM CDT us Nick Murphy MD POINT OF CARE TEST O RDERABLES Final Result * CTA Abdomen Pelvis (11/05/2024 1:24 PM CDT) Anatomical Region Laterality Modality Body N/A Computed Tomogra phy 11/11/2024 9:38 AM CDT Narrative 11/11/2024 9:48 AM CDT EXAM DESCRIPTION: CTA ABDOMEN PELVIS REASON FOR STUDY: INFRARENAL AAA repair in . TECHNIQUE: CTA scan of the abdomen and pelvis performed without and with intravenous and without oral contrast using helical scanning technique with dynamic intravenous contrast injection. Precontrast, arterial, and portal venous phase images of the abdomen and pelvis were acquired. Images reviewed with lung, soft tissue and bone windows. Reconstructed coronal and sagittal MPR images reviewed. All images stored on PACS. 3D MIP images rendered on scanning unit and reviewed at time of interpretation. Automated exposure control was used as a dose optimization technique for this examination. CONTRAST TYPE/DOSE: 100mL of IOVERSOL 350 MG IODINE/ML INTRAVENOUS SYRINGE injected via intravenous COMPARISON: CT abdomen and pelvis 05/10/2024 FINDINGS: VASCULATURE: Atherosclerotic vascular calcification of the abdominal aorta and branches. No dissection, intramural hematoma, rupture, or penetrating atherosclerotic ulcer. No large vessel occlusion. CELIAC TRUNK: No flow limiting stenosis, dissection, or aneurysm. SUPERIOR MESENTERIC ARTERY: No flow limiting stenosis, dissection, or aneurysm. RIGHT RENAL ARTERY: No flow limiting stenosis, dissection, or aneurysm. LEFT RENAL ARTERY: No flow limiting stenosis, dissection, or aneurysm. INFERIOR MESENTERIC ARTERY: No flow limiting stenosis, dissection, or aneurysm. AORTA: Redemonstration of infrarenal abdominal aorta status post aorto bi-iliac stent graft repair. Evidence of persistent type 2 endoleak. The excluded aneurysmal sac measures 5.0 x 4.8 cm in AP X transverse dimension, stable. No flow limiting stenosis or dissection. ILIAC ARTERIES: No flow limiting stenosis, dissection, or aneurysm. LOWER CHEST: No significant pulmonary abnormalities. No effusion. LIVER: Normal-sized liver. Stable hepatic cysts. No suspicious hepatic lesion GALLBLADDER: Sludge. No wall thickening or pericholecystic fluid BILE DUCTS: No intrahepatic or extrahepatic ductal dilatation. SPLEEN: Normal size. No focal lesions. PANCREAS: No identified cystic or solid masses. No significant calcifications. No adjacent inflammation or peripancreatic fluid collections. Pancreatic duct not dilated. ADRENALS: Left adrenal gland thickening. No nodules KIDNEYS/URINARY TRACT: No identified significant cystic or solid masses. No stones. No hydronephrosis or hydroureter. Symmetric enhancement. Normal bladder. GI: No dilated bowel loops. No obvious wall thickening. Normal appendix. No significant diverticular disease. PERITONEUM: No ascites or free air. RETROPERITONEUM: No mass or adenopathy. REPRODUCTIVE: Prostatic calcifications MUSCULOSKELETAL: No significant abnormality. OTHER: No other abnormality. IMPRESSION: Redemonstration of infrarenal abdominal aorta status post aorto bi-iliac stent graft repair. Evidence of persistent type 2 endoleak. The excluded aneurysmal sac measures 5.0 cm in dimension, stable. No acute findings THIS IS AN ELECTRONICALLY VERIFIED FINAL REPORT 11/11/2024 9:48 AM - Electronically signed by Jessica Miguel M.D. FT T: Report ID: [id number] Reading Location: [id number] Procedure Note Jessica Cavazos MD - 11/11/2024 EXAM DESCRIPTION: CTA ABDOMEN PELVIS REASON FOR STUDY: INFRARENAL AAA repair in . TECHNIQUE: CTA scan of the abdomen and pelvis performed without and with intravenous and without oral contrast using helical scanning techniquewith dynamic intravenous contrast injection. Precontrast, arterial, and portal venous phase images of the abdomen and pelvis were acquired. Images reviewed with lung, soft tissue and bone windows. Reconstructed coronaland sagittal MPR images reviewed. All images stored on PACS. 3D MIP images rendered on scanning unit and reviewed at time of interpretation.Automated exposure control was used as a dose optimization technique for this examination. CONTRAST TYPE/DOSE: 100mL of IOVERSOL 350 MG IODINE/ML INTRAVENOUSSYRINGE injected via intravenous COMPARISON: CT abdomen and pelvis 05/10/2024 FINDINGS: VASCULATURE: Atherosclerotic vascular calcification of the abdominal aorta and branches. No dissection, intramural hematoma,rupture, or penetrating atherosclerotic ulcer. No large vessel occlusion. CELIAC TRUNK: No flow limiting stenosis, dissection, or aneurysm. SUPERIOR MESENTERIC ARTERY: No flow limiting stenosis, dissection, or aneurysm. RIGHT RENAL ARTERY: No flow limiting stenosis, dissection, or aneurysm. LEFT RENAL ARTERY: No flow limiting stenosis, dissection, or aneurysm. INFERIOR MESENTERIC ARTERY: No flow limiting stenosis, dissection, or aneurysm. AORTA: Redemonstration of infrarenal abdominal aorta status post aorto bi-iliac stent graft repair. Evidence of persistent type 2 endoleak. The excluded aneurysmal sac measures 5.0 x 4.8 cm in AP X transversedimension, stable. No flow limiting stenosis or dissection. ILIAC ARTERIES: No flow limiting stenosis, dissection, or aneurysm. LOWER CHEST: No significant pulmonary abnormalities. No effusion. LIVER: Normal-sized liver. Stable hepatic cysts. No suspicious hepatic lesion GALLBLADDER: Sludge. No wall thickening or pericholecystic fluid BILE DUCTS: No intrahepatic or extrahepatic ductal dilatation. SPLEEN: Normal size. No focal lesions. PANCREAS: No identified cystic or solid masses. No significant calcifications. No adjacent inflammation or peripancreatic fluidcollections. Pancreatic duct not dilated. ADRENALS: Left adrenal gland thickening. No nodules KIDNEYS/URINARY TRACT: No identified significant cystic or solid masses.No stones. No hydronephrosis or hydroureter. Symmetric enhancement. Normal bladder. GI: No dilated bowel loops. No obvious wall thickening. Normalappendix. No significant diverticular disease. PERITONEUM: No ascites or free air. RETROPERITONEUM: No mass or adenopathy. REPRODUCTIVE: Prostatic calcifications MUSCULOSKELETAL: No significant abnormality. OTHER: No other abnormality. IMPRESSION: Redemonstration of infrarenal abdominal aorta status postaorto bi-iliac stent graft repair. Evidence of persistent type 2 endoleak. The excluded aneurysmal sac measures 5.0 cm in dimension, stable. No acute findings THIS IS AN ELECTRONICALLY VERIFIED FINAL REPORT 11/11/2024 9:48 AM - Electronically signed by Jessica Miguel M.D. FT T: Report ID: [id number] Reading Location: [place] [address] Rambo Harding MD IM CT PROCEDURES Final Result from Last 3 Months or Most Recently Relevant to Health Maintenance Insurance AETNA MEDICARE [facility] Address: [facility] [id number] [place] [id number] [facility] REF AETNA MEDICARE GOLD Advance Directives For more information, please contact: [phone] Documents on File Type Date Recorded Patient Airport Operations Specialist Expl anation ADVANCE DIRECTIVE 07/17/2017 12:00 AM EMILIANA R OF HVAC OPERATIONS TECHNICIAN FINANCIAL/MEDICAL * Full Code (Latest Code Status on File) Date Activated Date Inactivated Comments 06/27/2023 1:14 PM 06/28/2023 8:35 PM * Full Code Date Activated Date Inactivated Comments 06/12/2023 10:43 AM 06/12/2023 3:50 PM * Full Code Date Activated Date Inactivated Comments 05/16/2023 2:19 PM 05/17/2023 5:20 PM Care Teams Front Office Secretary Relationship Specialty Start Date End Date Osei Hooper MD [address] [facility] [address] [place] [address] PCP - General Family Medicine 10/23/19 Nick Murphy MD [address] [facility] [address], [place] [address] Consulting Physician Interventional Cardiology 05/04/23
--- OUTSIDE RECORDS SUMMARY | 2025-05-06 09:31 | XMS_ITS | Patient Health Record ---
Author Organization [facility] Address [address] [place], [place] [id number] Care Team Providers Care Actuarial Clerk Name Role Phone ESCOBAR DAY Unavailable [phone] Kenny Mora Unavailable Unavailable Reason For Referral No Information Social History Social History Additional Details Category Social Info Options Details Migrated Social History Migrated Social History Alcohol intake : , Smoking Status : Former smoker , History of tobacco use : Plan Of Treatment No Information Insurance Providers Payer Name Payer Address Payer Phone Subscriber Number Group Number Insured Name Patient Relationship to Insured Coverage Start Date Coverage End Date [facility] [address] [place] [phone] [id number] HUMERA PRUETT Self - patient is the insured
== END 2025-05-06 09:14 | disposition home or self-care (01) ==
PROVIDERS: PCP Family Medicine; Visit Provider Internal Medicine Critical Care Medicine
DX: J84.9 Interstitial pulmonary disease, unspecified (principal)
CPT/HCPCS: 71250

== ENCOUNTER 2025-05-14 08:00 | Outpatient (CLI) | payer MEDICARE, SELFPAY ==
--- NOTE | 2025-05-14 12:40 | WPDSIXMINUTE ---
Six Minute Walk Procedure Procedure Performed Pulmonary Stress Test (6 min walk) Six Minute Walk Six Minute Walk: This is a 6 minute walk test. The test was performed and interpreted in accordance with the 2014 ERS/ATS task force guidelines. Findings: The patient's resting room air oxygen saturation measured by pulse oximetry was 95%, the heart rate was 52 bpm, and the modified Feliz dyspnea score was 0. Patient ambulated for 366 meters and oxygen saturation remained 93 to 95%. At the end of the study the heart rate was 68 bpm and the modified Feliz dyspnea score was 1. The patient did not qualify for supplemental oxygen at rest or with ambulation. In comparison to previous 6 minute walk study on 04/16/2024 the ambulatory distance has increased from 336 m to 366 m and the ford saturation has improved from 92% to 93%.
--- NOTE | 2025-05-14 12:42 | WPDPFTINT ---
PFT Procedure Performed PFT Procedure Performed Spirometry with Pre/Post Bronchodilator Plethysmography (Lung Vol) Diffusing Cap (DLCO) Flow Vol Loop PFT Interpretation This is a pulmonary function test with pre and post-bronchodilator spirometry, plethysmography and diffusing capacity. The test was performed and results interpreted in accordance with the 2019 and 2005 ATS/ERS Task Force guidelines respectively using the Global Lung Function Initiative-2012 reference equations. Patient demonstrated good effort and cooperation. Reproducibility criteria were met. The quality of the pre bronchodilator spirometry maneuver was Grade A and post bronchodilator spirometry maneuver was Grade A. Findings: Spirometry: The contour the inspiratory and expiratory flow tracing are normal. The pre bronchodilator FVC is 3.31 L, 84% predicted. The pre bronchodilator FEV1 is 2.54 L, 86% predicted. The pre bronchodilator FEV1: FVC ratio is 77%. The post bronchodilator FVC is 3.29 L, representing no change. The post bronchodilator FEV1 is 2.55 L, representing a 1% increase. The post bronchodilator FEV1: FVC ratio 78%. Plethysmography: The total lung capacity is 5.74 L, 84% predicted. The functional residual capacity is 3.63 L, 100% predicted. The residual volume is 2.10 L, 84% predicted. Diffusing capacity: The diffusing capacity unadjusted for hemoglobin and carboxyhemoglobin is 15.7, 64% predicted. The diffusing capacity adjusted for alveolar volume is 3.31 L, 86% predicted. In comparison to previous pulmonary function testing on 04/16/2024, the post bronchodilator FVC is unchanged from 3.43 L to 3.29 L. The post bronchodilator FEV1 is unchanged from 2.67 L to 2.55 L. The total lung capacity is unchanged from 5.47 L to 5.74 L. The functional residual capacity has increased from 2.42 L to 3.63 L. The residual volume is unchanged from 2.09 L to 2.10 L. The diffusing capacity unadjusted for hemoglobin and carboxyhemoglobin is unchanged from 17.6 to 15.7. The diffusing capacity adjusted for alveolar volume is unchanged from 3.52 to 3.31. Impression: The spirometry is normal without evidence of an obstructive abnormality. There is no significant improvement after inhaling a single dose of albuterol. The lung volumes are normal. The diffusing capacity unadjusted for hemoglobin and carboxyhemoglobin is mildly decreased and normalizes when adjusted for alveolar volume. in comparison to previous pulmonary function testing on 04/16/2024, there has been a greater than anticipated time dependent increase in the functional residual capacity with no significant change in the FVC, FEV1, total lung capacity, residual volume or diffusing capacity. Clinical correlation is recommended.
== END 2025-05-14 08:01 | disposition home or self-care (01) ==
PROVIDERS: PCP Family Medicine; Visit Provider Internal Medicine Critical Care Medicine
DX: J84.9 Interstitial pulmonary disease, unspecified (principal)
CPT/HCPCS: 94060; 94618; 94726; 94729